=== PATIENT | female | born 1955 | race Caucasian/White ===

== ENCOUNTER 2016-08-05 12:39 | Emergency (ER) | payer BC ==
[2016-08-05 12:50] VITALS: BP 176/96
--- NOTE | 2016-08-05 13:38 | UC ---
Back Pain HPI - HPI Summary HPI Summary: 60 y/o female present to the urgent care c/o of chronic lower back pain , that has exacerbated since 07/25/2016., Pt reports she went to her daughter's wedding and she had to lift heavy luggage and then fell on her back. Since then, she has noticed numbness and tingling in the 1st and 2nd toes of both feet is increasing. Pt has a Hx of herniated disc Dx last year. She has finish PT and felt better, however she feels that her recent fall has exacerbated her lower back pain in the RT side. Pt denies fever, SOB, chest pain, saddle anesthesia, N/V/D, urinary symptoms. - History of Current Complaint Chief Complaint: UCLowerExtremity Stated Complaint: FOOT COMPLAINT Time Seen by Provider: 08/05/16 12:52 Hx Obtained From: Patient Hx Last Menstrual Period: Pt is menopausal ?: No Onset/Duration: Gradual Onset, Lasting Weeks, Still Present Timing: Intermittent Severity Initially: Mild Severity Currently: Moderate Pain Intensity: 4 Pain Scale Used: 0-10 Numeric Back Pain: Radiates To - Lower back pain radiating to hips with numbness and tingling over #1 and 2 toes b/L Character: Dull Aggravating: Movement, Lifting, Bending Alleviating: Rest Associated Signs And Symptoms: Positive: Numbness, Tingling, Pain with Weight Bearing. Negative: Swelling, Redness, Fever, Abdominal Pain, Flank Pain, Bladder Incontinence, Bowel Incontinence - Risk Factors AAA Risk Factors: Negative TAD Risk Factors: Negative Cauda Equina Risk Factors: Negative Epidural Abscess Risk Factors: Negative - Allergies/Home Medications Allergies/Adverse Reactions: Allergies Allergy/AdvReac Type Severity Reaction Status Date / Time Amoxicillin Allergy Severe Rash Verified 08/05/16 12:42 Ampicillin Allergy Severe Rash Verified 08/05/16 12:42 Aspirin Allergy Severe ASTHMA Verified 08/05/16 12:42 NSAIDs Allergy Severe ASTHMA-RELATED Verified 08/05/16 12:42 PROBLEMS Latex Allergy Mild Rash Verified 08/05/16 12:42 Home Medications: Home Medications Montelukast Sodium TAB* [Singulair 10 MG TAB*] 10 mg PO DAILY 08/05/16 [History Confirmed 08/05/16] PMH/Surg Hx/FS Hx/Imm Hx Previously Healthy: Yes Cardiovascular History: Hypertension Respiratory History: Asthma Other History Of: Negative For: Anticoagulant Therapy - Surgical History Surgical History: Yes Surgery Procedure, Year, and Place: TONSILS, D &C, TUBAL, HYSTERECTOMY, BLADDER LIFT 02, SINUSES, RHINOPLASTY, wisdom teeth -SILICONE CHIN IMPLANT - Family History Known Family History: Positive: Cardiac Disease, Hypertension, Renal Disease - Social History Occupation: Employed Full-time Lives: With Family Alcohol Use: Occasionally Substance Use Type: None Smoking Status (MU): Never Smoked Tobacco Type: Cigarettes Amount Used/How Often: ~ 1/2 ppd Have You Smoked in the Last Year: Yes Household Exposure Type: Cigarettes - Immunization History Most Recent Influenza Vaccination: 2016 Most Recent Tetanus Shot: 2010 Review of Systems Constitutional: Negative Skin: Negative Eyes: Negative ENT: Negative Respiratory: Negative Cardiovascular: Negative Gastrointestinal: Negative Genitourinary: Negative Musculoskeletal: Decreased ROM - of lower back due to pain Neurological: Negative, Numbness - numbness and tingling over the #1 and # 2 toes B/L Psychological: Negative All Other Systems Reviewed And Are Negative: Yes Physical Exam Triage Information Reviewed: Yes Appearance: Well-Appearing, No Pain Distress, Well-Nourished, Thin Vital Signs: Initial Vital Signs Temp 99.6 F 08/05/16 12:45 Pulse 105 08/05/16 12:45 Resp 18 08/05/16 12:45 BP 176/96 08/05/16 12:45 Pulse Ox 97 08/05/16 12:45 Vital Signs Reviewed: Yes Eye Exam: Normal Eyes: Positive: Conjunctiva Clear - PERRLA, EOMI, fundus grossly normal ENT Exam: Normal ENT: Positive: Normal ENT inspection, Hearing grossly normal, Pharynx normal, TMs normal. Negative: Nasal congestion, Nasal drainage, Tonsillar swelling, Tonsillar exudate Neck exam: Normal Neck: Positive: Supple, Nontender, No Lymphadenopathy Respiratory Exam: Normal Respiratory: Positive: Chest non-tender, Lungs clear, Normal breath sounds Cardiovascular Exam: Normal Cardiovascular: Positive: RRR, No Murmur, Pulses Normal Abdominal Exam: Normal Abdomen Description: Positive: Nontender, No Organomegaly, Soft. Negative: CVA Tenderness (R), CVA Tenderness (L) Bowel Sounds: Positive: Present Musculoskeletal: Positive: Strength Intact, ROM Limited @ - Back: mild scoliosis noted, no kyphosis,positive tenderness present at the level of L5-S1 with mild paraspinal muscle spasm and tenderness, Leg raise test:positive due to pain. Decrease FROM of back due to pain. Paraspinal muscle tenderness on palpation at the level of L5-S1. No edema. Positive pulses posterior tibialis and dorsalis pedis, femoral. Positive capillary refill. Decrease sensation on medial side of Toe #1 and 2 on both feet. Neurological Exam: Normal Psychological Exam: Normal Skin Exam: Normal Back Pain Course/Dx - Course Course Of Treatment: Lower back pain with numbness and tingling over the #1 and #2 toes B/L: Hx obtained. PE abnormal findings:Musculoskeletal: Positive: Strength Intact, ROM Limited @ - Back: mild scoliosis noted, no kyphosis, positive tenderness present at the level of L5-S1 with mild paraspinal muscle spasm and tenderness, Leg raise test:positive due to pain. Decrease FROM of back due to pain. Paraspinal muscle tenderness on palpation at the level of L5- S1. No edema. Positive pulses posterior tibialis and dorsalis pedis, femoral. Positive capillary refill. Decrease sensation on medial side of Toe #1 and 2 on both feet. Pt referred for PT evaluation and treatment. Pt Rx Medrol dose [place], flexeril 10mg PO and advise to wear a back support, avoid weight bearing and strenuous exercises. Also Advised if symptoms worsen to return to the urgent care or f/u with her PCP. Pt BP today is elevated 176/94. Pt with HX of HTN on Triamterine/HCTZ 1 tab PO qd. Pt advised on uncontrolled HTN, and she stated it is always uncontrolled and she took medication today. PT strongly advised to decrease salt intake, monitor her BP at home an f/u with her PCP for further evaluation and treatment. Pt understood and agreed. - Differential Dx/Diagnosis Differential Diagnosis/HQI/PQRI: Cauda Equina Syndrome, Compressive Cord Syndrome, Herniated Disc, Osteoporosis, Strain, Sprain Provider Diagnoses: Lower back pain, Uncontrolled HTN Discharge - Discharge Plan Condition: Stable Disposition: HOME Prescriptions: Cyclobenzaprine TAB* [Flexeril 10 MG TAB*] 10 mg PO TID PRN #30 tab PRN Reason: muscle spasm Methylprednisolone [Medrol Dosepak 4 MG*] 4 mg PO .SEE CHAPARRO INSTRUCTION #1 tab Patient Education Materials: Lumbar Radiculopathy (ED), Lower Back Exercises ( ED) Referrals: Megha Merrill MD [Primary Care Provider] - 1 Week Additional Instructions: Please take medication as directed to alleviate symptoms. Please make an appt for PT evaluation and treatment. Please avoid weight lifting and use a back support. If symptoms do not improve with medication please return to the urgent care or f/u with PCP for further evaluation and treatment.
== END 2016-08-05 13:43 | disposition home or self-care (01) ==
LOC: UCEAST 12:39
DX: M54.5 Low back pain (principal); I10 Essential (primary) hypertension; J45.909 Unspecified asthma, uncomplicated; Z88.1 Allergy status to other antibiotic agents; Z88.6 Allergy status to analgesic agent; Z91.040 Latex allergy status; Z90.710 Acquired absence of both cervix and uterus; Z72.0 Tobacco use
CPT/HCPCS: 99212; G0463

== ENCOUNTER 2016-09-12 13:18 | Emergency (ER) | payer BC ==
[2016-09-12 13:23] VITALS: BP 138/98
[2016-09-12] MEDS ORDERED: Meclizine TAB* 12.5 MG PO ONE (13:23)
--- NOTE | 2016-09-12 13:23 | UC ---
Dizzy HPI HPI Summary: 60 YEAR OLD FEMALE WITH A PMHX BPV PRESENTS WITH COMPLAINS OF VERTIGO. - History Of Current Complaint Stated Complaint: DIZZY Time Seen by Provider: 09/12/16 13:23 Hx Last Menstrual Period: Pt is menopausal - Allergies/Home Medications Allergies/Adverse Reactions: Allergies Allergy/AdvReac Type Severity Reaction Status Date / Time Amoxicillin Allergy Severe Rash Verified 08/05/16 12:42 Ampicillin Allergy Severe Rash Verified 08/05/16 12:42 Aspirin Allergy Severe ASTHMA Verified 08/05/16 12:42 NSAIDs Allergy Severe ASTHMA-RELATED Verified 08/05/16 12:42 PROBLEMS Latex Allergy Mild Rash Verified 08/05/16 12:42 PMH/Surg Hx/FS Hx/Imm Hx Other History Of: Negative For: Anticoagulant Therapy - Surgical History Surgical History: Yes Surgery Procedure, Year, and Place: TONSILS, D &C, TUBAL, HYSTERECTOMY, BLADDER LIFT 02, SINUSES, RHINOPLASTY, wisdom teeth -SILICONE CHIN IMPLANT - Family History Known Family History: Positive: Cardiac Disease, Hypertension, Renal Disease - Social History Alcohol Use: Occasionally Substance Use Type: None Smoking Status (MU): Never Smoked Tobacco Type: Cigarettes Amount Used/How Often: ~ 1/2 ppd Have You Smoked in the Last Year: Yes Household Exposure Type: Cigarettes - Immunization History Most Recent Influenza Vaccination: 2016 Most Recent Tetanus Shot: 2010 Review of Systems Constitutional: Other - VERTIGO Skin: Negative Eyes: Negative ENT: Negative Respiratory: Negative Cardiovascular: Negative Gastrointestinal: Negative Genitourinary: Negative Motor: Negative Neurovascular: Negative Musculoskeletal: Negative Neurological: Negative Psychological: Negative All Other Systems Reviewed And Are Negative: Yes Physical Exam Triage Information Reviewed: Yes Eye Exam: Normal ENT Exam: Normal Dental Exam: Normal Neck exam: Normal Neck: Positive: 1 Respiratory Exam: Normal Cardiovascular Exam: Normal Abdominal Exam: Normal Musculoskeletal Exam: Normal Neurological: Positive: Fatigued, Other: - VERTIGO Psychological Exam: Normal Skin Exam: Normal Dizzy Course/Dx - Differential Dx/Diagnosis Provider Diagnoses: BPV Discharge - Discharge Plan Condition: Stable Disposition: HOME Prescriptions: Meclizine HCl [Meclizine 25] 25 mg PO Q8HR PRN #30 tab PRN Reason: Dizziness Scopolamine 1.5 mg* PATCH* [Transderm-Scop 1.5 mg Patch*] 1 patch TRANSDERM Q72H #1 box Patient Education Materials: Vertigo (ED) Forms: *Work Release Referrals: Megha Merrill MD [Primary Care Provider] - If Needed
== END 2016-09-12 13:50 | disposition home or self-care (01) ==
LOC: UCEAST 13:18
DX: H81.10 Benign paroxysmal vertigo, unspecified ear (principal); Z78.0 Asymptomatic menopausal state; Z88.6 Allergy status to analgesic agent; Z88.3 Allergy status to other anti-infective agents; Z91.040 Latex allergy status; F17.210 Nicotine dependence, cigarettes, uncomplicated
CPT/HCPCS: 99212; A9270-GY; G0463

== ENCOUNTER 2016-12-15 15:35 | Emergency (ER) | payer BC ==
[2016-12-15 15:49] VITALS: BP 150/85
--- NOTE | 2016-12-15 16:27 | UC ---
Throat Pain/Nasal Isaac HPI - HPI Summary HPI Summary: This is a 61 yo female with a h/o recurrent sinusitis and 2 prior polypectomies who presented with c/o nasal congestion and facial pain. Patient has been treated for sinusitis in June and September of this year. She states that 2 weeks after completing her September course of antibiotics her symptoms began to recur. She has been afebrile and denies associated cough. - History of Current Complaint Chief Complaint: UCRespiratory Stated Complaint: SINUS COMPLAINT Hx Last Menstrual Period: Pt is menopausal - Allergies/Home Medications Allergies/Adverse Reactions: Allergies Allergy/AdvReac Type Severity Reaction Status Date / Time Amoxicillin Allergy Severe Rash Verified 12/15/16 15:50 Ampicillin Allergy Severe Rash Verified 12/15/16 15:50 Aspirin Allergy Severe ASTHMA Verified 12/15/16 15:50 NSAIDs Allergy Severe ASTHMA-RELATED Verified 12/15/16 15:50 PROBLEMS Latex Allergy Mild Rash Verified 12/15/16 15:50 PMH/Surg Hx/FS Hx/Imm Hx Previously Healthy: No - recurrent sinusitis Other History Of: Negative For: Anticoagulant Therapy - Surgical History Surgical History: Yes Surgery Procedure, Year, and Place: TONSILS, D &C, TUBAL, HYSTERECTOMY, BLADDER LIFT 02, SINUSES, RHINOPLASTY, wisdom teeth -SILICONE CHIN IMPLANT - Family History Known Family History: Positive: Cardiac Disease, Hypertension, Renal Disease - Social History Alcohol Use: Occasionally Substance Use Type: None Smoking Status (MU): Heavy Every Day Tobacco Smoker Type: Cigarettes Amount Used/How Often: 1/2 ppd Length of Time of Smoking/Using Tobacco: since 2006 Have You Smoked in the Last Year: Yes Household Exposure Type: Cigarettes - Immunization History Most Recent Influenza Vaccination: 2016 Most Recent Tetanus Shot: 2011 Review of Systems Constitutional: Negative Skin: Negative Eyes: Negative ENT: Nasal Discharge, Sinus Congestion, Sinus Pain/Tenderness Respiratory: Negative Cardiovascular: Negative Gastrointestinal: Negative Genitourinary: Negative Motor: Negative Neurovascular: Negative Musculoskeletal: Negative Neurological: Negative Psychological: Negative Is Patient Immunocompromised?: No All Other Systems Reviewed And Are Negative: Yes Physical Exam Triage Information Reviewed: Yes Appearance: Well-Appearing Vital Signs: Initial Vital Signs Temp 98.8 F 12/15/16 15:44 Pulse 82 12/15/16 15:44 Resp 16 12/15/16 15:44 BP 150/85 12/15/16 15:44 Pulse Ox 98 12/15/16 15:44 Vital Signs Reviewed: Yes ENT: Positive: Pharynx normal, Nasal congestion, Nasal drainage - nasal turbinates are boggy and inflammed, TMs normal. Negative: Tonsillar swelling Neck: Positive: Supple, Nontender, No Lymphadenopathy Respiratory: Positive: Lungs clear, Normal breath sounds Cardiovascular: Positive: RRR, No Murmur Abdominal Exam: Normal Abdomen Description: Positive: Nontender, Soft Musculoskeletal Exam: Normal Neurological Exam: Normal Psychological Exam: Normal Skin Exam: Normal Throat Pain/Nasal Course/Dx - Course Course Of Treatment: This is a 61 yo female with recurrent sinusitis who presents with sinus complaints x 6 weeks. She has associated L facial pain. Treat with Levaquin and oral corticosteroids. Recommend f/u with ENT. - Differential Dx/Diagnosis Differential Diagnosis/HQI/PQRI: Sinusitis, Tonsillitis, URI Provider Diagnoses: 1. Sinusitis Discharge - Discharge Plan Condition: Stable Disposition: HOME Prescriptions: Levofloxacin TAB* [Levaquin TAB*] 750 mg PO DAILY #14 tab predniSONE TAB* [Deltasone TAB*] 50 mg PO SEE INSTRUCTIONS #30 tab Patient Education Materials: Sinusitis (ED) Referrals: Megha Merrill MD [Primary Care Provider] - If Needed Additional Instructions: Instructions: 1. Take antibiotic and steroid as directed 2. Start nasal steroid when finished with oral steroid taper 3. Follow up with ENT due to recurrent infection
== END 2016-12-15 16:31 | disposition home or self-care (01) ==
LOC: UCEAST 15:35
DX: J32.9 Chronic sinusitis, unspecified (principal); Z88.6 Allergy status to analgesic agent; Z88.1 Allergy status to other antibiotic agents; F17.210 Nicotine dependence, cigarettes, uncomplicated
CPT/HCPCS: 99212; G0463

== ENCOUNTER 2017-01-17 14:31 | Emergency (ER) | payer BC ==
[2017-01-17 15:20] VITALS: BP 155/80
--- NOTE | 2017-01-17 15:35 | UC ---
Respiratory Complaint HPI - HPI Summary HPI Summary: 61 y/o female PMHX of Asthma, HTN , presents to the urgent care c/o SOB, chest congestion with productive barking cough since 01/15/2017. Pt also reports fever of 10F last night. She also states associated wheezing and nasal congestion with yellowish nasal discharge. She took Tylenol to alleviate symptoms and has been using the albuterol inhaler. Pt recently stopped smoking 3 weeks ago and has the patch. She also states hx of chronic sinusitis. She was Tx with levofloxacin PO here at the clinic for sinusitis on 11/2016. Pt denies chest pain, abdominal pain, N/V/D. - History of Current Complaint Hx Obtained From: Patient Hx Last Menstrual Period: Pt is menopausal ?: No Onset/Duration: Gradual Onset, Lasting Days - 3 days, Still Present Timing: Constant Severity Initially: Mild Severity Currently: Moderate Pain Intensity: 5 - sinus pain and SYKES Pain Scale Used: 0-10 Numeric Character: Cough: Productive, Sputum Description: - yellowish Aggravating Factors: Deep Breaths, Recumbent Position Alleviating Factors: Bronchodilator Associated Signs And Symptoms: Positive: Dyspnea, Fever, Wheezing, Nasal Congestion. Negative: Pleuritic Chest Pain, Calf Pain, Calf Swelling - Risk Factors Pulmonary Embolism Risk Factors: Negative Cardiac Risk Factors: Hypertension Pseudomonas Risk Factors: Negative Tuberculosis Risk Factors: Negative <Ruthann Suresh - Last Filed: 01/18/17 00:28> <Hannah Montes De Oca - Last Filed: 01/18/17 08:14> - History of Current Complaint Chief Complaint: UCRespiratory Stated Complaint: COUGH, CONGESTED Time Seen by Provider: 01/17/17 15:29 - Allergies/Home Medications Allergies/Adverse Reactions: Allergies Allergy/AdvReac Type Severity Reaction Status Date / Time Amoxicillin Allergy Severe Rash Verified 12/15/16 15:50 Ampicillin Allergy Severe Rash Verified 12/15/16 15:50 Aspirin Allergy Severe ASTHMA Verified 12/15/16 15:50 NSAIDs Allergy Severe ASTHMA-RELATED Verified 12/15/16 15:50 PROBLEMS Latex Allergy Mild Rash Verified 12/15/16 15:50 PMH/Surg Hx/FS Hx/Imm Hx Previously Healthy: Yes Endocrine History: Hypothyroidism Cardiovascular History: Hypertension Respiratory History: Asthma Other Neurological History: DDD Psychological History: Depression Other History Of: Negative For: Anticoagulant Therapy - Surgical History Surgical History: Yes Surgery Procedure, Year, and Place: TONSILS, D &C, TUBAL, HYSTERECTOMY, BLADDER LIFT 02, SINUSES, RHINOPLASTY, wisdom teeth -SILICONE CHIN IMPLANT - Family History Known Family History: Positive: Cardiac Disease, Hypertension, Renal Disease - Social History Occupation: Employed Full-time Lives: With Family Alcohol Use: Occasionally Substance Use Type: None Smoking Status (MU): Heavy Every Day Tobacco Smoker Type: Cigarettes Amount Used/How Often: 1/2 ppd Length of Time of Smoking/Using Tobacco: since 2006 Have You Smoked in the Last Year: Yes Household Exposure Type: Cigarettes - Immunization History Most Recent Influenza Vaccination: 2016 Most Recent Tetanus Shot: 2010 <Ruthann Suresh - Last Filed: 01/18/17 00:28> Review of Systems Constitutional: Fever Skin: Negative Eyes: Negative ENT: Nasal Discharge, Sinus Congestion Respiratory: Shortness Of Breath, Cough - productive with yellowish phlegm, Other - wheezing Cardiovascular: Negative Gastrointestinal: Negative Genitourinary: Negative Motor: Negative Neurovascular: Negative Musculoskeletal: Negative Neurological: Headache Psychological: Negative Is Patient Immunocompromised?: No All Other Systems Reviewed And Are Negative: Yes <Ruthann Suresh - Last Filed: 01/18/17 00:28> Physical Exam Triage Information Reviewed: Yes Vital Signs: Initial Vital Signs Temp 99.6 F 01/17/17 15:16 Pulse 89 01/17/17 15:16 Resp 22 01/17/17 15:16 BP 155/80 01/17/17 15:16 Pulse Ox 97 01/17/17 15:16 - Additional Comments Vital Signs Reviewed: Yes General: well developed, well nourished female sitting in the examining table w/ o any apparent distress Eyes: Positive: Conjunctiva Clear - PERRLA, EOMI, fundi grossly normal ENT: Positive: Normal ENT inspection, Hearing grossly normal, Pharynx normal, Nasal congestion - edematous and erythematous nasal mucosa, Nasal drainage - yellowish drainage, maxillary and frontal sinus tenderness on percussion and palpation.TMs normal. Negative: Tonsillar swelling, Tonsillar exudate Neck: Positive: Supple, Nontender, No Lymphadenopathy Respiratory: no orthopnea or dyspnea. Able to speak in full sentences, no retractions or accessory muscle use, no tripod position, stridor, or head bobbing.,, scattered wheezing and rhonchi in both lungs, no crackles or rales. Cardiovascular: Positive: RRR, No Murmur, Pulses Normal, Brisk Capillary Refill Abdomen Description: Positive: Nontender, No Organomegaly, Soft. Negative: CVA Tenderness (R), CVA Tenderness (L) Bowel Sounds: Positive: Present Musculoskeletal Exam: Normal Musculoskeletal: Positive: Strength Intact, ROM Intact, No Edema Neurological Exam: Normal Psychological Exam: Normal Skin Exam: Normal <Ruthann Suresh - Last Filed: 01/18/17 00:28> Vital Signs: Initial Vital Signs Temp 99.6 F 01/17/17 15:16 Pulse 89 01/17/17 15:16 Resp 22 01/17/17 15:16 BP 155/80 01/17/17 15:16 Pulse Ox 97 01/17/17 15:16 <Hannah Montes De Oca - Last Filed: 01/18/17 08:14> UC Diagnostic Evaluation - Laboratory O2 Sat by Pulse Oximetry: 97 <Ruthann Suresh - Last Filed: 01/18/17 00:28> Respiratory Course/Dx - Course Course Of Treatment: 61 y/o female PMHX of Asthma, HTN , presents to the urgent care c/o SOB, chest congestion with productive barking cough since 01/15/2017. Pt also reports fever of 10F last night. She also states associated wheezing and nasal congestion with yellowish nasal discharge. She took Tylenol to alleviate symptoms and has been using the albuterol inhaler. Pt recently stopped smoking 3 weeks ago and has the patch. She also states hx of chronic sinusitis. She was Tx with levofloxacin PO here at the clinic for sinusitis on 11/2016. Pt denies chest pain, abdominal pain, N/V/D. Hx obtained. Pt with Acute bronchitis on examination.Chest X-ray ordered to r/o pneumonia, Impression : No acute cardiopulmonary disease noted. Pt given at the clinic prednisone PO and duoneb treatment to alleviate SOB and wheezing. Pt tolerated well treatment and lungs improved and Pt felt better. Pt previous smoker. Pt RxDoxycycline PO, Duo neb Tx and Albuterol inhaler to alleviate symptoms. Pt's BP elevated today advised to decrease salt in diet and monitor BP and F/U with PCP for further management. Pt also advised to increase fluid intake, eat well and rest. if not improvement or worsening of symptoms to return to the urgent care or f/u with PCP for further management. pt understood and agreed with plan of care. - Differential Dx/Diagnosis Differential Diagnosis/HQI/PQRI: Asthma, Bronchitis, Exacerbation Of COPD, Influenza, Laryngitis, Lower Resp Infection, Sinusitis Provider Diagnoses: 1- Acute bronchitis. 2-Asthma exacerbation. 3- Uncontrolled HTN <Ruthann Suresh - Last Filed: 01/18/17 00:28> Discharge <Ruthann Suresh - Last Filed: 01/18/17 00:28> <Hannah Montes De Oca - Last Filed: 01/18/17 08:14> - Discharge Plan Condition: Stable Disposition: HOME Prescriptions: Albuterol HFA INHALER* [Ventolin HFA Inhaler*] 2 puff INH Q4H PRN #1 mdi PRN Reason: Wheezing Albuterol/Ipratropium NEB.LUNA* [Duoneb (Albuterol 2.5 MG/Ipratropium 0.5 MG)] 1 neb INH Q6H PRN #1 neb.luna PRN Reason: Wheezing DOXYcycline CAP(*) [DOXYcycline 100MG CAP(*)] 100 mg PO BID #20 cap predniSONE TAB* [Deltasone TAB*] 10 mg PO DAILY #30 tab Patient Education Materials: Asthma (ED), Acute Bronchitis (ED), Low Sodium Diet (ED) Forms: *Work Release Referrals: Megha Merrill MD [Primary Care Provider] - 3 Days Additional Instructions: 1-Please take full course of antibiotic to avoid resistance. 2-Take do the duo neb treatment as directed to alleviate SOB and cough. Increase fluid intake, rest and eat well. 3- If symptoms do not improve or worsen or your develop SOB with fever and severe wheezing please go immediately to the ER further evaluation and treatment. 4- F/u with your PCP in 2-3 days for further management on your Asthma 5-Your BP is elevated please decrease salt in your diet and monitor BP if it continues to be elevated please f/u wth your PCP Attestation Statement User Type: Provider - I was available for consult. This patient was seen by the LEONOR. The patient was not presented to, seen by, or examined by me. -Evelyn <Hannah Montes De Oca - Last Filed: 01/18/17 08:14>
[2017-01-17] MEDS ORDERED: predniSONE TAB* 20 MG PO ONE (15:50)
[2017-01-17] MEDS ORDERED: Albuterol/Ipratropium NEB.SOL* Albuterol 2.5 MG/Ipratropium 0.5 MG 3 ML INH ONE (15:50)
--- NOTE | 2017-01-17 15:52 | RAD ---
Indication: Cough. 2 views of the chest including dual energy PA views demonstrate no mediastinal shift. Heart is of normal size and configuration. Lungs are clear. When compared to previous exam of April 08, 2014 no significant change is noted. IMPRESSION: No active cardiopulmonary disease is noted.
== END 2017-01-17 16:45 | disposition home or self-care (01) ==
LOC: UCEAST 14:31
DX: J20.9 Acute bronchitis, unspecified (principal); J45.901 Unspecified asthma with (acute) exacerbation; I10 Essential (primary) hypertension; Z72.0 Tobacco use
CPT/HCPCS: 71020; 99212; A9270-GY; G0463; J7512

== ENCOUNTER 2017-03-10 17:16 | Emergency (ER) | payer BC ==
[2017-03-10 18:15] VITALS: BP 187/90
--- NOTE | 2017-03-10 19:03 | UC ---
Respiratory Complaint HPI - HPI Summary HPI Summary: 61 yo female with cough and wheezing x 7 weeks out of her rescue inhaler out of her flovent no fever/chills cough not productive for past week has been having left lateral chest wall pain with cough - History of Current Complaint Chief Complaint: UCRespiratory Stated Complaint: URI Time Seen by Provider: 03/10/17 18:48 Hx Obtained From: Patient Hx Last Menstrual Period: Pt is menopausal Onset/Duration: Sudden Onset, Gradual Onset Timing: Constant Severity Initially: Moderate Severity Currently: Moderate Pain Intensity: 3 Pain Scale Used: 0-10 Numeric Character: Cough: Nonproductive Aggravating Factors: Exertion, Deep Breaths Alleviating Factors: Bronchodilator Associated Signs And Symptoms: Positive: Wheezing - Allergies/Home Medications Allergies/Adverse Reactions: Allergies Allergy/AdvReac Type Severity Reaction Status Date / Time Amoxicillin Allergy Severe Rash Verified 03/10/17 18:16 Ampicillin Allergy Severe Rash Verified 03/10/17 18:16 Aspirin Allergy Severe ASTHMA Verified 03/10/17 18:16 NSAIDs Allergy Severe ASTHMA-RELATED Verified 03/10/17 18:16 PROBLEMS Latex Allergy Mild Rash Verified 03/10/17 18:16 PMH/Surg Hx/FS Hx/Imm Hx Previously Healthy: Yes Cardiovascular History: Hypertension Respiratory History: Asthma, Bronchitis Other History Of: Negative For: Anticoagulant Therapy - Surgical History Surgical History: Yes Surgery Procedure, Year, and Place: TONSILS, D &C, TUBAL, HYSTERECTOMY, BLADDER LIFT 02, SINUSES, RHINOPLASTY, wisdom teeth -SILICONE CHIN IMPLANT - Family History Known Family History: Positive: Cardiac Disease, Hypertension, Renal Disease - Social History Alcohol Use: Occasionally Substance Use Type: None Smoking Status (MU): Heavy Every Day Tobacco Smoker Type: Cigarettes Amount Used/How Often: 1/2 ppd Length of Time of Smoking/Using Tobacco: since 2006 Have You Smoked in the Last Year: Yes Household Exposure Type: Cigarettes - Immunization History Most Recent Influenza Vaccination: 2016 Most Recent Tetanus Shot: 2010 Review of Systems Constitutional: Negative Skin: Negative Eyes: Negative ENT: Negative Respiratory: Cough Cardiovascular: Chest Pain Gastrointestinal: Negative Genitourinary: Negative Motor: Negative Neurovascular: Negative Musculoskeletal: Negative Neurological: Negative Psychological: Negative Is Patient Immunocompromised?: No All Other Systems Reviewed And Are Negative: Yes Physical Exam Triage Information Reviewed: Yes Appearance: Well-Appearing, No Pain Distress, Well-Nourished Vital Signs: Initial Vital Signs Temp 98.6 F 03/10/17 18:12 Pulse 80 03/10/17 18:12 Resp 18 03/10/17 18:12 BP 187/90 03/10/17 18:12 Pulse Ox 99 03/10/17 18:12 Vital Signs Reviewed: Yes Eyes: Positive: Conjunctiva Clear ENT: Positive: Hearing grossly normal. Negative: Nasal congestion, Nasal drainage, Trismus, Muffled voice, Hoarse voice Neck: Positive: Nontender, No Lymphadenopathy Respiratory: Positive: No respiratory distress, No accessory muscle use, Wheezing - with forced expiration Cardiovascular: Positive: RRR, No Murmur Musculoskeletal: Positive: ROM Intact, No Edema Neurological: Positive: Alert Psychological Exam: Normal Skin Exam: Normal UC Diagnostic Evaluation - Laboratory O2 Sat by Pulse Oximetry: 99 - normal/not hypoxic - EKG Cardiac Rate: NL Cardiac Rhythm: Sinus: Normal Ectopy: None ST Segment: Normal Respiratory Course/Dx - Differential Dx/Diagnosis Provider Diagnoses: asthma- poor control. med refill. tobacco use. hypertension. chest wall pain Discharge - Discharge Plan Condition: Stable Disposition: HOME Prescriptions: Albuterol HFA INHALER* [Ventolin HFA Inhaler*] 2 puff INH QID #1 mdi Fluticasone HFA 220 mcg(NF) [Flovent HFA 220 Mcg(NF)] 1 puff INH BID #1 mdi Prednisone [Deltasone] 40 mg PO DAILY #10 tab Patient Education Materials: Bronchospasm (ED) Referrals: Sunil Pollack MD [Medical Doctor] - As Soon As Possible Megha Merrill MD [Primary Care Provider] - 2 Weeks (re BP) Additional Instructions: stop smoking recheck for new or worsening symptoms
== END 2017-03-10 19:10 | disposition home or self-care (01) ==
LOC: UCEAST 17:16
DX: J45.909 Unspecified asthma, uncomplicated (principal); I10 Essential (primary) hypertension; R07.89 Other chest pain; Z72.0 Tobacco use; Z76.0 Encounter for issue of repeat prescription; Z88.0 Allergy status to penicillin; Z88.6 Allergy status to analgesic agent; Z91.040 Latex allergy status
CPT/HCPCS: 93005; 99212; G0463

== ENCOUNTER 2017-04-22 16:00 | Emergency (ER) | payer BC ==
[2017-04-22 16:50] VITALS: BP 176/117
--- NOTE | 2017-04-22 17:25 | UC ---
Respiratory Complaint HPI - HPI Summary HPI Summary: Patient c/o cough, facial pain specially on the left maxillary area, night sweats and low grade fever for several weeks. Has history of paranasal polyps s /p surgery 3 times. PMH of asthma, smokes half PPD. She has yellow green d/c and left sided nasal obstruction. - History of Current Complaint Chief Complaint: UCGeneralIllness Stated Complaint: SINUS COMPLAINT Time Seen by Provider: 04/22/17 16:03 Hx Last Menstrual Period: Pt is menopausal Pain Intensity: 4 Character: Cough: Productive, Sputum Description: - yellow greenish post nasal drip Associated Signs And Symptoms: Positive: Chills, Nasal Congestion, Sinus Discomfort - Risk Factors Pulmonary Embolism Risk Factors: Negative Cardiac Risk Factors: Negative Pseudomonas Risk Factors: Negative Tuberculosis Risk Factors: Negative - Allergies/Home Medications Allergies/Adverse Reactions: Allergies Allergy/AdvReac Type Severity Reaction Status Date / Time amoxicillin Allergy Rash Verified 04/22/17 16:54 ampicillin Allergy Rash Verified 04/22/17 16:54 aspirin Allergy See Comment Verified 04/22/17 16:55 latex Allergy Rash Verified 04/22/17 16:54 NSAIDS (Non-Steroidal Allergy See Comment Verified 04/22/17 16:55 Anti-Inflamma Home Medications: Home Medications Levothyroxine TAB* [Synthroid 25 MCG TAB*] 25 mcg PO DAILY 04/22/17 [History Confirmed 04/22/17] PMH/Surg Hx/FS Hx/Imm Hx Previously Healthy: Yes Endocrine History: Hypothyroidism Respiratory History: Asthma Psychological History: Depression Other History Of: Negative For: Anticoagulant Therapy - Surgical History Surgical History: Yes Surgery Procedure, Year, and Place: TONSILS, D &C, TUBAL, HYSTERECTOMY, BLADDER LIFT 02, SINUSES, RHINOPLASTY, wisdom teeth -SILICONE CHIN IMPLANT - Family History Known Family History: Positive: Cardiac Disease, Hypertension, Renal Disease - Social History Alcohol Use: Occasionally Substance Use Type: None Smoking Status (MU): Heavy Every Day Tobacco Smoker Type: Cigarettes Amount Used/How Often: 1/2 ppd Length of Time of Smoking/Using Tobacco: since 2006 Have You Smoked in the Last Year: Yes Household Exposure Type: Cigarettes - Immunization History Most Recent Influenza Vaccination: 2016 Most Recent Tetanus Shot: 2010 Review of Systems Constitutional: Chills Skin: Negative ENT: Nasal Discharge, Sinus Congestion, Sinus Pain/Tenderness Respiratory: Cough Cardiovascular: Negative Gastrointestinal: Negative Genitourinary: Negative Motor: Negative Neurovascular: Negative Musculoskeletal: Negative All Other Systems Reviewed And Are Negative: Yes Physical Exam Triage Information Reviewed: Yes Appearance: Well-Appearing Vital Signs: Initial Vital Signs Temp 99.1 F 04/22/17 16:44 Pulse 86 04/22/17 16:44 Resp 18 04/22/17 16:44 BP 176/117 04/22/17 16:44 Pulse Ox 98 04/22/17 16:44 Vital Signs Reviewed: Yes Eyes: Positive: Conjunctiva Clear ENT: Positive: Hearing grossly normal, Pharynx normal, Nasal congestion, Nasal drainage, TMs normal, Hoarse voice, Sinus tenderness, Uvula midline Neck: Positive: Supple, Nontender, No Lymphadenopathy Respiratory: Positive: Chest non-tender, Lungs clear, Normal breath sounds, No respiratory distress, No accessory muscle use Cardiovascular: Positive: RRR, No Murmur, Pulses Normal, Brisk Capillary Refill Abdomen Description: Positive: Nontender UC Diagnostic Evaluation - Laboratory O2 Sat by Pulse Oximetry: 98 Respiratory Course/Dx - Course Course Of Treatment: Start Levaquin 500mg po daily for 7 days and pulmicort irrigation, referral ENT for evaluation r/o recurrence of paranasal polyps - Differential Dx/Diagnosis Provider Diagnoses: Acute maxillary sinusitis Discharge - Discharge Plan Condition: Stable Disposition: HOME Patient Education Materials: Sinusitis (ED) Referrals: Megha Merrill MD [Primary Care Provider] - Nba Maria MD [Medical Doctor] -
== END 2017-04-22 17:32 | disposition home or self-care (01) ==
LOC: UCEAST 16:00
DX: J01.00 Acute maxillary sinusitis, unspecified (principal); E03.9 Hypothyroidism, unspecified; J45.909 Unspecified asthma, uncomplicated; F32.9 Major depressive disorder, single episode, unspecified; F17.210 Nicotine dependence, cigarettes, uncomplicated
CPT/HCPCS: 99212; G0463

== ENCOUNTER → 2017-05-20 07:41 | Day surgery (SDC) | payer BC ==
[~2017-05-20 07:41] MED LIST: Buffered Lidocaine 0.9% SYRIN* 5 ML/SYR SYRINGE INTRADERM ONE; Dexamethasone IV* 4 MG/ML 1 ML (4 MG) IV SLOW PU ONE; Dexamethasone IV* 4 MG/ML 1 ML (4 MG) ONE; DiMENhydriNATE IV* 50 MG/ML VIAL IV PUSH PRN; Famotidine IV* 10 MG/ML 2 ML (20 mg) IV ONE; Famotidine IV* 10 MG/ML 2 ML (20 mg) ONE; Ketorolac INJ* 30 MG/ML 1 ML VIAL ONE; Lidocaine 1% MPF wEPI 200,000* 30 ML SDV ONE; Lidocaine 4% TOPICAL* 50 ML TOP.SOLN ONE; Midazolam* 1 MG/ML 2 ML VIAL (2 MG) ONE; Naloxone* 0.4 MG/ML 1 ML VIAL IV PRN; Ondansetron INJ* 2 MG/ML VIAL ONE; Oxymetazoline 0.05% NASAL SPR* 15 ML BTL ONE; Propofol* 10 MG/ML 20 ML BTL IV PUSH ONE; Scopolamine 1.5 mg* PATCH ONE; Scopolamine 1.5 mg* PATCH TRANSDERM ONE; Triamcinolone Acetonide* 40 MG/ML 1 ML VIAL ONE; fentaNYL* 50 MCG/ML 2 ML VIAL (100 MCG VIAL) ONE
[2017-05-20] MEDS: fentaNYL* 50 MCG/ML 2 ML VIAL (100 MCG VIAL) IV PRN ×4 (12:38→12:50)
[2017-05-20 13:16] VITALS: BP 148/73
--- NOTE | 2017-05-21 05:08 | OP ---
DATE OF OPERATION: 05/20/17 - SDS DATE OF : 55. SURGEON: Kiko Saravia MD. ANESTHESIA: General laryngeal mask airway anesthesia. PRE-OP DIAGNOSIS: Chronic maxillary ethmoidal, sphenoidal sinusitis with nasal polyposis. POST-OP DIAGNOSIS: Chronic maxillary ethmoidal, sphenoidal sinusitis with nasal polyposis. OPERATIVE PROCEDURE: Bilateral endoscopic sinus surgery using image guidance with maxillary antrostomies with debridement, anterior and posterior ethmoidectomy and sphenoidotomy under general laryngeal mask airway anesthesia. COMPLICATIONS: None. DISPOSITION: Good. SPECIMENS: Left and right polyps and sinus contents. DESCRIPTION OF PROCEDURE: The patient was taken to the operating room and placed in the supine position on the operating table. General anesthesia was induced and she was maintained with laryngeal mask airway anesthesia. Nose was packed with cottonoids impregnated with oxymetazoline and 4% lidocaine. She was registered to the image-guided system and endoscopic sinuses were bilaterally. The polyps, lateral wall, uncinate process were injected with lidocaine with epinephrine. I systematically debrided the polyps from the ostiomeatal unit, maxillary ostium, maxillary sinuses, anterior and posterior ethmoids, and the sphenoid sinuses where they were protruding from. This was done with a Blakeonley's debrider and again using image guidance to verify the position within the sinuses. Polyps were taken from the frontal ducts, but I did not enter the frontal sinuses, their ostium were open. Once this was achieved, Stammberger Sinu-Foam mixed with water and 1 mL of Kenalog 40 was mixed and placed in her ostiomeatal units bilaterally. Patient tolerated the procedure well, no complications, transferred to the recovery room in stable condition. [id number]/[facility] #: [id number] [facility]
== END | disposition home or self-care (01) ==
LOC: OR 07:41
PROVIDERS: ATTEND Otolaryngology
DX: J32.8 Other chronic sinusitis (principal); J33.8 Other polyp of sinus; I10 Essential (primary) hypertension; F17.210 Nicotine dependence, cigarettes, uncomplicated
CPT/HCPCS: 88304; A9270-GY; J1100; J1885; J2001; J2250; J2405; J2704; J3010; J3301

== ENCOUNTER 2017-09-08 10:19 | Emergency (ER) | payer BC ==
[2017-09-08 11:03] VITALS: BP 155/90
[2017-09-08] MEDS ORDERED: Cephalexin CAP* 500 MG PO ONE (11:12)
[2017-09-08] MEDS ORDERED: Phenazopyridine TAB* 100 MG PO ONE (11:12)
--- NOTE | 2017-09-08 11:35 | UC ---
Complaint Female HPI - HPI Summary HPI Summary: Patient is a 61-year-old female presenting to the with complaint of urgency, frequency, burning with urination and suprapubic tenderness since 3 AM. History of UTIs, last UTI 2 years ago. States she had Keflex and. With relief 2 years ago. She has not tried any Pyridium health the past few days. She denies any back pain. Denies any fevers, sweats, chills. She states she is feeling otherwise well. - History Of Current Complaint Chief Complaint: UCGU Stated Complaint: URINARY COMPLAINT Time Seen by Provider: 09/08/17 11:05 Hx Obtained From: Patient Hx Last Menstrual Period: Pt is menopausal ?: No Onset/Duration: Sudden Onset Timing: Constant Severity Initially: Moderate Severity Currently: Moderate Pain Intensity: 1 Pain Scale Used: 0-10 Numeric - Risk Factors Ectopic Risk Factor: Negative Ovarian Torsion Risk Factor: Negative - Allergies/Home Medications Allergies/Adverse Reactions: Allergies Allergy/AdvReac Type Severity Reaction Status Date / Time amoxicillin Allergy Rash Verified 09/08/17 11:04 ampicillin Allergy Rash Verified 09/08/17 11:04 aspirin Allergy See Comment Verified 09/08/17 11:04 latex Allergy Rash Verified 09/08/17 11:04 NSAIDS (Non-Steroidal Allergy See Comment Verified 09/08/17 11:04 Anti-Inflamma PMH/Surg Hx/FS Hx/Imm Hx Previously Healthy: Yes Other History Of: Negative For: Anticoagulant Therapy - Surgical History Surgical History: Yes Surgery Procedure, Year, and Place: tonsillectomy age 19 [place]. D&[place] x3 in [place]. Tubal ligation 1993 [place]. hysterectomy with bladder lift 2001 [place]. sinus surgeries (1 with rhinoplasty and silicone chin implant) [place]3 [place]2 [place], 1 [facility] [place] wisdom teeth extraction in dental office. left upper thigh squamous cell removed - [place] [facility] [place] - Family History Known Family History: Positive: Cardiac Disease, Hypertension, Renal Disease - Social History Occupation: Employed Full-time Lives: With Family Alcohol Use: Rare Substance Use Type: None Smoking Status (MU): Light Every Day Tobacco Smoker Type: Cigarettes Amount Used/How Often: down to 5 cigs day from 1/2 ppd for 16 yrs Length of Time of Smoking/Using Tobacco: since 2006 Have You Smoked in the Last Year: Yes Household Exposure Type: Cigarettes - Immunization History Most Recent Influenza Vaccination: 2016 Most Recent Tetanus Shot: 2011 Review of Systems Constitutional: Fever Skin: Negative Respiratory: Negative Cardiovascular: Negative Genitourinary: Dysuria, Frequency, Urgency Neurovascular: Negative Musculoskeletal: Negative Neurological: Negative Is Patient Immunocompromised?: No All Other Systems Reviewed And Are Negative: Yes Physical Exam Triage Information Reviewed: Yes Appearance: Well-Appearing, Well-Nourished Vital Signs: Initial Vital Signs Temp 98.6 F 09/08/17 11:00 Pulse 71 09/08/17 11:00 Resp 18 09/08/17 11:00 BP 155/90 09/08/17 11:00 Pulse Ox 100 09/08/17 11:00 Vital Signs Reviewed: Yes Eye Exam: Normal Eyes: Positive: Conjunctiva Clear Neck: Positive: Supple Respiratory Exam: Normal Respiratory: Positive: Chest non-tender Cardiovascular Exam: Normal Musculoskeletal Exam: Normal Musculoskeletal: Positive: Strength Intact Neurological Exam: Normal Neurological: Positive: Alert Psychological: Positive: Normal Response To Family Skin Exam: Normal Complaint Female Dx - Course Course Of Treatment: During the [facility], the patient's evaluated for UTI symptoms. Endorses frequency, urgency, burning and suprapubic tenderness. UA obtained which shows N leukocytes. She is given Keflex 500 mg 4 times daily 5 days. Also given Pyridium. She is given Keflex prior to her discharge from the . She is okay with this plan. - Differential Dx/Diagnosis Differential Diagnosis/HQI/PQRI: Urinary Tract Infection Provider Diagnoses: UTI Discharge - Sign-Out/Discharge Documenting (check all that apply): Patient Departure - Discharge Plan Condition: Stable Disposition: HOME Prescriptions: Cephalexin CAP* [Keflex CAP*] 500 mg PO QID #20 cap MDD 4 Phenazopyridine TAB* [Pyridium 100 mg TAB*] 100 mg PO TID #12 tab Patient Education Materials: Urinary Tract Infection in Women (ED) Referrals: Megha Merrill MD [Primary Care Provider] - Additional Instructions: Drink plenty of water Keflex four times daily x 5 days Pyridium up to three times daily as needed - Billing Disposition and Condition Condition: STABLE Disposition: Home Attestation Statement User Type: Provider - I was available for consult. This patient was seen by the LEONOR. The patient was not presented to, seen by, or examined by me. -Evelyn
--- NOTE | 2017-09-10 12:53 | ED ---
Progress - Progress Note Progress Note: Urine culture grew out ESBL resistent to Keflex, so re-sent to pharmacy Macrobid 100 BID x 7 days Please call pt and inform pt her urine results and to ultrasound supervisor new abx Course/Dx - Course Course Of Treatment: During the [facility], the patient's evaluated for UTI symptoms. Endorses frequency, urgency, burning and suprapubic tenderness. UA obtained which shows N leukocytes. She is given Keflex 500 mg 4 times daily 5 days. Also given Pyridium. She is given Keflex prior to her discharge from the . She is okay with this plan. Discharge - Sign-Out/Discharge Documenting (check all that apply): Patient Departure - Discharge Plan Condition: Stable Disposition: HOME Prescriptions: Cephalexin CAP* [Keflex CAP*] 500 mg PO QID #20 cap MDD 4 Phenazopyridine TAB* [Pyridium 100 mg TAB*] 100 mg PO TID #12 tab Patient Education Materials: Urinary Tract Infection in Women (ED) Referrals: Megha Merrill MD [Primary Care Provider] - Additional Instructions: Drink plenty of water Keflex four times daily x 5 days Pyridium up to three times daily as needed - Billing Disposition and Condition Condition: STABLE Disposition: Home
== END 2017-09-08 11:22 | disposition home or self-care (01) ==
LOC: UCEAST 10:19
DX: N39.0 Urinary tract infection, site not specified (principal); F17.210 Nicotine dependence, cigarettes, uncomplicated; Z88.0 Allergy status to penicillin; Z88.6 Allergy status to analgesic agent; Z91.040 Latex allergy status
CPT/HCPCS: 81003; 87077; 87086; 87186; 99212; A9270-GY; G0463

== ENCOUNTER 2017-10-03 11:34 | Emergency (ER) | payer BC ==
[2017-10-03 12:38] VITALS: BP 163/104
--- NOTE | 2017-10-03 12:43 | UC ---
Bite Injury/Animal HPI - HPI Summary HPI Summary: This is scribe Keira Hirsch documenting for attending Dr. Elizabeth MD. 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 She picked up her dog, her dog started yelping and bit her accidentally. Pt had her last tetanus shot in 2010. I, Dr. Johnson, personally performed the services described in this documentation as scribed in my presence and it is both accurate and complete. - History of Current Complaint Chief Complaint: UCBiteInjury Stated Complaint: DOG BITE Hx Obtained From: Patient Hx Last Menstrual Period: Pt is menopausal Severity Currently: Mild Severity Initially: Mild Pain Intensity: 3 Pain Scale Used: 0-10 Numeric Onset/Duration: Sudden Onset, Lasting Hours - This morning Type of Bite: Pet - dog Has Animal Been Immunized?: Yes Character: Puncture, Abrasion/Laceration - 6mm total V-shaped. Nonbleeding Hx of Bite: Unprovoked Animal Available for Observation: Yes Animal Control Notified: No - Allergies/Home Medications Allergies/Adverse Reactions: Allergies Allergy/AdvReac Type Severity Reaction Status Date / Time amoxicillin Allergy Rash Verified 10/03/17 12:31 ampicillin Allergy Rash Verified 10/03/17 12:31 aspirin Allergy See Comment Verified 10/03/17 12:31 latex Allergy Rash Verified 10/03/17 12:31 NSAIDS (Non-Steroidal Allergy See Comment Verified 10/03/17 12:31 Anti-Inflamma PMH/Surg Hx/FS Hx/Imm Hx Previously Healthy: No Cardiovascular History: Hypertension Respiratory History: Asthma Cancer History: Other Other Cancer History: skin cancer Other History Of: Negative For: Anticoagulant Therapy - Surgical History Surgical History: Yes Surgery Procedure, Year, and Place: tonsillectomy age 19 [place]. D&C x3 in [place]. Tubal ligation 1993 [place]. hysterectomy with bladder lift 2001 [place]. sinus surgeries [place]1 with rhinoplasty and silicone chin [place] [facility] [place]. [place] upper [place] squamous [place] [facility] [place] Family History Known Family History: Positive: Cardiac Disease, Hypertension, Diabetes, Renal Disease - Social History Occupation: Employed Full-time Lives: With Family Alcohol Use: Rare Substance Use Type: None Smoking Status (MU): Light Every Day Tobacco Smoker Type: Cigarettes Amount Used/How Often: 1/2 ppd Length of Time of Smoking/Using Tobacco: since 2006 Have You Smoked in the Last Year: Yes Household Exposure Type: Cigarettes - Immunization History Most Recent Influenza Vaccination: 2016 Most Recent Tetanus Shot: 2010 Review of Systems Constitutional: Negative - fever Skin: Other - Abrasion and skin tear on upper left lip All Other Systems Reviewed And Are Negative: Yes Physical Exam - Summary Physical Exam Summary: Appearance: Well appearing, no pain distress Skin: warm, dry, reflects adequate perfusion. Skin tear and abrasion on left upper lip that is 6mm total, V-shaped. Non-bleeding. Head/face: normal Eyes: EOMI, ROMÁN ENT: normal Neck: supple, non-tender Respiratory: CTA, breath sounds present Cardiovascular: RRR, pulses symmetrical Abdomen: non-tender, soft Bowel Sounds: present Musculoskeletal: normal, strength/ROM intact Neuro: normal, sensory motor intact, A&Ox3 Triage Information Reviewed: Yes Vital Signs: Initial Vital Signs Temp 98.5 F 10/03/17 12:32 Pulse 62 10/03/17 12:32 Resp 16 10/03/17 12:32 BP 163/104 10/03/17 12:32 Pulse Ox 96 10/03/17 12:32 Vital Signs Reviewed: Yes Procedures - Laceration/Wound Repair 1 Location: mouth - upper L lip Description: Irregular - V-shaped Anesthesia: 1.0%, Lido - .5cc, infraorbital nerve block Betadine Prep?: No Irrigated w/ Saline (ccs): 30 Laceration/Wound Explored: clean Closure: Single Layer - half buried horizontal mattress suture Debridement: minimal Suture Type: Prolene - 6-0 Number of Sutures: 1 Layer Closure?: Yes Sterile Dressing Applied?: Yes Bite Injury Course/Dx - Course Course Of Treatment: BP noted and advised to follow up with PCP. Patient was anesthetized with an infraorbital nerve block and then irrigated through the needle into the wound. She was started on antibiotics. 1 stitch loosely approximated the wound. She is discharged in good condition after tetanus was updated. Dog has up-to-date vaccines and is her patent. - Differential Dx/Diagnosis Provider Diagnoses: 1. HTN. 2. Dog bite to face with laceration Discharge - Sign-Out/Discharge Documenting (check all that apply): Patient Departure - Discharge Plan Condition: Improved Disposition: HOME Prescriptions: Ciprofloxacin TAB* [Cipro 500 MG TAB*] 500 mg PO BID #10 tab metroNIDAZOLE [Flagyl 500 MG TAB] 500 mg PO TID #15 tab Patient Education Materials: Animal Bite (ED), Care For Your Stitches (ED) Referrals: Megha Merrill MD [Primary Care Provider] - Additional Instructions: Follow up with PCP, ED, or urgent care in 5-7 days to have stitches removed. Your blood pressure was elevated during todays visit; please follow up with your primary care provider within a week for further evaluation. Dress with bacitracin ointment. Return with concern for infection, worse or other concerns. Probiotic or Activia yogurt may prevent diarrhea while taking antibiotics. - Billing Disposition and Condition Condition: IMPROVED Disposition: Home
[2017-10-03] MEDS ORDERED: Tetan/Diph/Pertus SYR(Tdap)* 0.5 ML SYR(BOOSTRIX) use SYR IM ONE (13:13)
== END 2017-10-03 13:26 | disposition home or self-care (01) ==
LOC: UCEAST 11:34
DX: S01.511A Laceration without foreign body of lip, initial encounter (principal); W54.0XXA Bitten by dog, initial encounter; Y93.89 Activity, other specified; Y92.9 Unspecified place or not applicable; Z23 Encounter for immunization; I10 Essential (primary) hypertension; Z88.0 Allergy status to penicillin; Z88.6 Allergy status to analgesic agent; Z91.040 Latex allergy status; Z82.49 Family history of ischemic heart disease and other diseases of the circulatory system; Z83.3 Family history of diabetes mellitus; Z84.1 Family history of disorders of kidney and ureter; F17.210 Nicotine dependence, cigarettes, uncomplicated
CPT/HCPCS: 12011; 90715; 99212; G0463

== ENCOUNTER → 2018-02-17 11:55 | Emergency (ER) | payer BC ==
[~2018-02-17 11:55] MED LIST changes: +Albuterol/Ipratropium NEB.SOL* Albuterol 2.5 MG/Ipratropium 0.5 MG 3 ML INH ONE; -Buffered Lidocaine 0.9% SYRIN* 5 ML/SYR SYRINGE INTRADERM ONE; -Dexamethasone IV* 4 MG/ML 1 ML (4 MG) IV SLOW PU ONE; -Dexamethasone IV* 4 MG/ML 1 ML (4 MG) ONE; -DiMENhydriNATE IV* 50 MG/ML VIAL IV PUSH PRN; -Famotidine IV* 10 MG/ML 2 ML (20 mg) IV ONE; -Famotidine IV* 10 MG/ML 2 ML (20 mg) ONE; -Ketorolac INJ* 30 MG/ML 1 ML VIAL ONE; -Lidocaine 1% MPF wEPI 200,000* 30 ML SDV ONE; -Lidocaine 4% TOPICAL* 50 ML TOP.SOLN ONE; -Midazolam* 1 MG/ML 2 ML VIAL (2 MG) ONE; -Naloxone* 0.4 MG/ML 1 ML VIAL IV PRN; -Ondansetron INJ* 2 MG/ML VIAL ONE; -Oxymetazoline 0.05% NASAL SPR* 15 ML BTL ONE; -Propofol* 10 MG/ML 20 ML BTL IV PUSH ONE; -Scopolamine 1.5 mg* PATCH ONE; -Scopolamine 1.5 mg* PATCH TRANSDERM ONE; -Triamcinolone Acetonide* 40 MG/ML 1 ML VIAL ONE; -fentaNYL* 50 MCG/ML 2 ML VIAL (100 MCG VIAL) ONE
[2018-02-17 15:54] VITALS: BP 156/87
--- NOTE | 2018-02-17 18:15 | ED ---
Shortness of Breath - HPI Summary HPI Summary: Patient is otherwise healthy 62-year-old female with a history of asthma presenting to the ED with a potential asthma exacerbation. She states of the past several days she's been having worsening SOB and especially last evening awoke coughing with SOB and concerned she could not catch her breath. She states this happened in the past and has needed steroids for good relief. She has been taking Flovent and albuterol without relief of her symptoms. She was seen last week and given a Z-Rene which improved her symptoms over the next few days, however the symptoms worsened. She continues to cough without production. She denies any chest pain. She denies any other concerns of this date. She denies any fevers, however endorses sweats at baseline. - History of Current Complaint Chief Complaint: EDShortnessOfBreath Time Seen by Provider: 02/17/18 12:50 Hx Obtained From: Patient Onset/Duration: Gradual Onset Timing: Constant Current Severity: Moderate Dyspnea At: Rest Aggrevating Factors: Nothing Alleviating Factors: Upright Position Associated Signs & Symptoms: Cough (Nonproductive) - Risk Factors Pulmonary Embolism: Negative Cardiac: Negative Pseudomonas: Chronic Lung Disease Tuberculosis: Negative - Allergy/Home Medications Allergies/Adverse Reactions: Allergies Allergy/AdvReac Type Severity Reaction Status Date / Time amoxicillin Allergy Rash Verified 02/17/18 12:34 ampicillin Allergy Rash Verified 02/17/18 12:34 aspirin Allergy See Comment Verified 02/17/18 12:34 latex Allergy Rash Verified 02/17/18 12:34 NSAIDS (Non-Steroidal Allergy See Comment Verified 02/17/18 12:34 Anti-Inflamma PMH/Surg Hx/FS Hx/Imm Hx Previously Healthy: Yes Endocrine/Hematology History: Reports: Hx Thyroid Disease - hypo Denies: Hx Anticoagulant Therapy, Hx Diabetes Cardiovascular History: Reports: Hx Hypertension Denies: Hx Pacemaker/ICD Respiratory History: Reports: Hx Asthma, Other Respiratory Problems/Disorders - chronic pansinusitis Denies: Hx Chronic Obstructive Pulmonary Disease (COPD) GI History: Reports: Hx Irritable Bowel - not diagnosed History: Reports: Other Problems/Disorders - hx UTI's, chronic hematuria, kidney biopsy in 1975, no f/u Denies: Hx Dialysis, Hx Renal Disease Musculoskeletal History: Reports: Other Musculoskeletal History - "bulging disc " - saw jayden, no f/u needed Sensory History: Reports: Hx Contacts or Glasses - readers Denies: Hx Hearing Aid Opthamlomology History: Reports: Hx Contacts or Glasses - readers Neurological History: Reports: Hx Migraine - none since hysterectomy Denies: Hx Dementia, Hx Seizures Psychiatric History: Reports: Hx Anxiety Denies: Hx Panic Disorder, Hx Substance Abuse - Cancer History Cancer Type, Location and Year: skin Hx Chemotherapy: No Hx Radiation Therapy: No - Surgical History Surgery Procedure, Year, and Place: tonsillectomy age 19 [place]. D&[place] x3 [place]. Tubal ligation 1993 [place]. hysterectomy with bladder lift 2001 [place]. sinus surgeries (1 with rhinoplasty and silicone chin implant) [place]3 [place]2 [place], [place] [facility] [place] wisdom teeth extraction in dental office. 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 , History Other Infectious Disease - HX + PPD Denies: Hx Clostridium Difficile, Hx Hepatitis, Hx Human Immunodeficiency Virus (HIV), Hx of Known/Suspected MRSA, Hx Shingles, Hx Known/Suspected VRE, Hx Known/Suspected VRSA, Traveled Outside the [place] in Last 30 Days - Family History Known Family History: Positive: Cardiac Disease, Hypertension, Diabetes, Renal Disease - Social History Occupation: Employed Full-time Lives: With Family Alcohol Use: Rare Hx Substance Use: No Substance Use Type: Reports: None Hx Tobacco Use: Yes Smoking Status (MU): Current Every Day Smoker Type: Cigarettes Amount Used/How Often: 1/2 ppd Length of Time of Smoking/Using Tobacco: since 2006 Have You Smoked in the Last Year: Yes Review of Systems Constitutional: Negative Negative: Fever, Chills, Fatigue, Skin Diaphoresis Negative: Palpitations, Chest Pain Positive: Shortness Of Breath, Cough Negative: Abdominal Pain, Vomiting, Diarrhea, Nausea Genitourinary: Negative Positive: no symptoms reported, see HPI Negative: Arthralgia, Myalgia Negative: Headache, Weakness All Other Systems Reviewed And Are Negative: Yes Physical Exam Triage Information Reviewed: Yes Vital Signs On Initial Exam: Initial Vitals Temp Pulse Resp BP Pulse Ox 99.3 F 66 24 156/97 98 02/17/18 12:31 12/28/18 12:31 02/17/18 12:31 02/17/18 12:31 02/17/18 12:31 Vital Signs Reviewed: Yes Appearance: Positive: Well-Appearing, Well-Nourished Skin: Positive: Warm, Skin Color Reflects Adequate Perfusion Head/Face: Positive: Normal Head/Face Inspection Eyes: Positive: EOMI, ROMÁN, Conjunctiva Clear Neck: Positive: Supple, No Lymphadenopathy Respiratory/Lung Sounds: Positive: Clear to Auscultation, Breath Sounds Present Cardiovascular: Positive: RRR, Pulses are Symmetrical in both Upper and Lower Extremities Musculoskeletal: Positive: Normal, Strength/ROM Intact Neurological: Positive: Sensory/Motor Intact, Alert, Oriented to Person Place, Time Psychiatric: Positive: Normal, Affect/Mood Appropriate AVPU Assessment: Alert Diagnostics - Vital Signs Vital Signs Temp Pulse Resp BP Pulse Ox 02/17/18 15:52 98.8 F 79 16 156/87 96 02/17/18 15:12 64 14 95 02/17/18 15:00 64 91 02/17/18 14:52 61 124/76 94 02/17/18 14:22 75 155/89 94 02/17/18 14:02 93 96 02/17/18 13:52 71 145/78 93 02/17/18 13:22 69 166/84 95 02/17/18 13:00 67 14 98 02/17/18 12:52 73 97 02/17/18 12:31 99.3 F 66 24 156/97 98 - Laboratory Lab Results: Lab Results 02/17/18 Range/Units 12:55 Influenza A (Rapid) Negative (Negative) Influenza B (Rapid) Negative (Negative) Lab Statement: Any lab studies that have been ordered have been reviewed, and results considered in the medical decision making process. Course/Dx - Course Course Of Treatment: Patient is evaluated for a possible COPD/asthma exacerbation. On physical examination, lung sounds wheezing bilaterally without adventitious rhonchorous sounds. Patient is nontoxic in appearing, nondiaphoretic. She is afebrile on arrival and other vital signs are stable. She is giving a breathing treatment on arrival, chest x-ray obtained. Chest x- ray shows no active acute cardiopulmonary disease. She is given a steroid taper for her symptoms and refilled to [facility] for home. She is also given Tessalon Perles for cough. She will follow up with PCP. She is given one more breathing treatment prior to discharge and feels improved. - Diagnoses Provider Diagnoses: Bronchitis, Asthma exacerbation Discharge - Sign-Out/Discharge Documenting (check all that apply): Patient Departure - Discharge Plan Condition: Stable Disposition: HOME Prescriptions: Benzonatate CAP* [Tessalon CAP*] 100 mg PO TID #21 cap Ipratropium 0.5MG/2.5ML NEB* [Atrovent 0.5 MG NEB.LUNA*] 0.5 mg INH Q4H PRN #20 meb.soln PRN Reason: Sob/Wheezing predniSONE TAB* [Deltasone 10 MG TAB*] 10 mg PO DAILY #30 tab Referrals: Megha Merrill MD [Primary Care Provider] - Additional Instructions: Nebulizer treatments as needed for shortness of breath Tessalon up to three times daily for cough Prednisone as directed - Billing Disposition and Condition Condition: STABLE Disposition: Home
== END | disposition home or self-care (01) ==
LOC: ED 11:55
DX: J40 Bronchitis, not specified as acute or chronic (principal); J45.901 Unspecified asthma with (acute) exacerbation; R05 Cough; R06.02 Shortness of breath; Z88.0 Allergy status to penicillin; F17.210 Nicotine dependence, cigarettes, uncomplicated
CPT/HCPCS: 71046; 99282; A9270-GY

== ENCOUNTER 2018-05-05 16:05 | Emergency (ER) | payer BC ==
--- NOTE | 2018-05-05 17:22 | UC ---
Abdominal Pain Female HPI - HPI Summary HPI Summary: Pt c/o sudden onset of abdominal discomfort and daily, frequent diarrhea X 3 weeks. Pt has hx of IBS - History of Current Complaint Chief Complaint: UCGI Stated Complaint: ABDOMINAL COMPLAINT Time Seen by Provider: 05/05/18 17:12 Hx Obtained From: Patient Hx Last Menstrual Period: Pt is menopausal ?: No Onset/Duration: Sudden Onset, Lasting Weeks, Still Present Timing: Intermittent Episodes Lasting: Severity Initially: Moderate Severity Currently: Moderate Pain Intensity: 4 Location: Diffuse Radiates: No Character: Colicy, Dull Aggravating Factor(s): Food Alleviating Factor(s): Nothing Associated Signs and Symptoms: Positive: Diarrhea - Risk Factors Ectopic Risk Factor: Negative Ovarian Torsion Risk Factor: Negative Allergies/Adverse Reactions: Allergies Allergy/AdvReac Type Severity Reaction Status Date / Time amoxicillin Allergy Rash Verified 05/05/18 17:05 ampicillin Allergy Rash Verified 05/05/18 17:05 aspirin Allergy See Comment Verified 05/05/18 17:05 latex Allergy Rash Verified 05/05/18 17:05 NSAIDS (Non-Steroidal Allergy See Comment Verified 05/05/18 17:05 Anti-Inflamma Home Medications: Home Medications Beclomethasone Dipropionate [Qnasl] 10.6 gm INH BEDTIME 05/05/18 [History Confirmed 05/05/18] Melatonin/Pyridoxine HCl (B6) [Melatonin 5 mg Tablet] 1 tab PO BEDTIME 05/05/18 [History Confirmed 05/05/18] PMH/Surg Hx/FS Hx/Imm Hx Previously Healthy: Yes Cardiovascular History: Hypertension Other History Of: Negative For: Anticoagulant Therapy - Surgical History Surgical History: Yes Surgery Procedure, Year, and Place: tonsillectomy age 19 [place]. D&[place] x3 [place]. Tubal ligation 1993 [place]. hysterectomy with bladder lift 2001 [place]. sinus surgeries (1 with rhinoplasty and silicone chin implant) [place]2 [place], [place] [facility] [place] dental office. left upper thigh squamous cell removed [place] [facility] [place] - Family History Known Family History: Positive: Cardiac Disease, Hypertension, Diabetes, Renal Disease - Social History Occupation: Employed Full-time Lives: With Family Alcohol Use: Rare Substance Use Type: None Smoking Status (MU): Current Every Day Smoker Type: Cigarettes Amount Used/How Often: 1/2 ppd Length of Time of Smoking/Using Tobacco: since 2006 Have You Smoked in the Last Year: Yes Household Exposure Type: Cigarettes - Immunization History Most Recent Influenza Vaccination: 2016 Most Recent Tetanus Shot: 2010 Review of Systems All Other Systems Reviewed And Are Negative: Yes Constitutional: Positive: Fatigue Skin: Positive: Negative Eyes: Positive: Negative ENT: Positive: Negative Respiratory: Positive: Negative Cardiovascular: Positive: Negative Gastrointestinal: Positive: Diarrhea Genitourinary: Positive: Negative Motor: Positive: Negative Neurovascular: Positive: Negative Musculoskeletal: Positive: Myalgia Neurological: Positive: Weakness Psychological: Positive: Negative Is Patient Immunocompromised?: No Physical Exam Triage Information Reviewed: Yes Appearance: Well-Appearing Vital Signs: Initial Vital Signs Temp 98.4 F 05/05/18 17:00 Pulse 78 05/05/18 17:00 Resp 16 05/05/18 17:00 BP 200/106 05/05/18 17:00 Pulse Ox 96 05/05/18 17:00 Vital Signs Reviewed: Yes Eye Exam: Normal ENT Exam: Normal Dental Exam: Normal Neck exam: Normal Respiratory Exam: Normal Cardiovascular Exam: Normal Abdominal Exam: Other - generalized tenderness Bowel Sounds: Positive: Present Musculoskeletal Exam: Normal Neurological Exam: Normal Psychological Exam: Normal Skin Exam: Normal Abd Pain Female Course/Dx - Course Course Of Treatment: Pt has known exposure to C-difficile. - Differential Dx/Diagnosis Differential Diagnosis: Diverticulitis, Irritable Bowel Syndrome Provider Diagnosis: Abdominal pain, Diarrhea Discharge - Sign-Out/Discharge Documenting (check all that apply): Patient Departure All imaging exams completed and their final reports reviewed: No Studies - Discharge Plan Condition: Stable Disposition: HOME Patient Education Materials: Acute Diarrhea (ED), Hypertension (ED) Referrals: Megha Merrill MD [Primary Care Provider] - As Soon As Possible - Billing Disposition and Condition Condition: STABLE Disposition: Home
[2018-05-05 17:24] VITALS: BP 200/100
--- NOTE | 2018-05-07 08:32 | UC ---
- Progress Note Progress Note: 05/07/2018 Stool specimen: C. difficil PCR final : negative for Toxigenic C.Difficil Stool culture: still pending final report. No change Ruthann Suresh PA-C Course/Dx - Diagnoses Provider Diagnoses: Abdominal pain, Diarrhea Discharge - Sign-Out/Discharge Documenting (check all that apply): Patient Departure - D/C home All imaging exams completed and their final reports reviewed: No Studies - Discharge Plan Condition: Stable Disposition: HOME Patient Education Materials: Acute Diarrhea (ED), Hypertension (ED) Referrals: Megha Merrill MD [Primary Care Provider] - As Soon As Possible - Billing Disposition and Condition Condition: STABLE Disposition: Home
== END 2018-05-05 17:30 | disposition home or self-care (01) ==
LOC: UCEAST 16:05
DX: R19.7 Diarrhea, unspecified (principal); R10.9 Unspecified abdominal pain; F17.210 Nicotine dependence, cigarettes, uncomplicated; I10 Essential (primary) hypertension; Z88.8 Allergy status to other drugs, medicaments and biological substances; Z88.0 Allergy status to penicillin; Z91.040 Latex allergy status
CPT/HCPCS: 82272; 87045; 87046; 87077; 87147; 87328; 87329; 87493; 87899; 99211; G0463

== ENCOUNTER 2018-05-15 10:57 | Emergency (ER) | payer BC ==
[2018-05-15] MEDS ORDERED: Ondansetron TAB* 4 MG PO ONE (11:13)
[2018-05-15] MEDS ORDERED: NS 0.9% 1000 ML** 1,000 ML IV ONE (11:13)
--- NOTE | 2018-05-15 11:13 | ED ---
GI/ HPI - HPI Summary HPI Summary: This pt is a 62 y/o female presenting [place] [facility] c/o nausea, vomiting, diarrhea. Pt reports she has had diarrhea for the past 2.5 weeks. She went to Urgent Care on 05/05/18 for the same symptoms and her stool was tested, which was negative for C. diff. She notes 3 days ago she had emesis after eating. Last night and today pt has had a lot of episodes of emesis, approximately 11 episodes in total. Pt notes abd cramping right before episodes of diarrhea and feeling nauseous. Denies fever, SOB, chest pain. Denies sick contacts at home. Denies recent long distance travel. She last took antibiotics in January 2018. PMHx includes IBS. Her last colonoscopy was 7 years ago and notes it was normal. - History of Current Complaint Chief Complaint: EDNauseaVomitDiarrh Time Seen by Provider: 05/15/18 11:06 Stated Complaint: DIARRHEA FOR 2WKS/ABD CRAMPS PER PT Hx Obtained From: Patient Hx Last Menstrual Period: Pt is menopausal Onset/Duration: Started Weeks Ago, Still Present Timing: Lasting Weeks Current Severity: Moderate Pain Intensity: 0 - denies pain currently Location of Pain: None Associated Signs and Symptoms: Positive: Nausea, Vomiting, Diarrhea. Negative: Fever, Chest Pain Aggravating Factor(s): Nothing Alleviating Factor(s): Nothing - Allergy/Home Medications Allergies/Adverse Reactions: Allergies Allergy/AdvReac Type Severity Reaction Status Date / Time amoxicillin Allergy Rash Verified 05/05/18 17:05 ampicillin Allergy Rash Verified 05/05/18 17:05 aspirin Allergy See Comment Verified 05/05/18 17:05 clindamycin Allergy Diarrhea Verified 05/15/18 11:02 latex Allergy Rash Verified 05/05/18 17:05 NSAIDS (Non-Steroidal Allergy See Comment Verified 05/05/18 17:05 Anti-Inflamma Home Medications: Home Medications ALPRAZolam TAB* [Xanax TAB*] 0.5 mg PO BEDTIME PRN 05/15/18 [History Confirmed 05/15/18] Albuterol 2.5MG/3ML (0.083%)* [Ventolin 2.5 MG/3 ML NEB.LUNA*] 2.5 mg INH BID PRN 05/15/18 [History Confirmed 05/15/18] Albuterol HFA INHALER* [Ventolin HFA Inhaler*] 2 puff INH BID PRN 05/15/18 [ History Confirmed 05/15/18] Citalopram TAB* [Celexa TAB*] 20 mg PO QAM 05/15/18 [History Confirmed 05/15/18] Conjugated Estrogens TAB* [Premarin TAB*] 0.3 mg PO DAILY 05/15/18 [History Confirmed 05/15/18] LevoCETirizine TAB (NF) [Xyzal TAB (NF)] 5 mg PO DAILY 05/15/18 [History Confirmed 05/15/18] Levothyroxine TAB* [Synthroid TAB*] 50 mcg PO DAILY 05/15/18 [History Confirmed 05/15/18] Mometasone Furoate [Elocon] 0.1 % TOPICAL BEDTIME PRN 05/15/18 [History Confirmed 05/15/18] Montelukast Sodium TAB* [Singulair 5 mg TAB*] 5 mg PO DAILY 05/15/18 [History Confirmed 05/15/18] Omeprazole CAP (NF) [Prilosec CAP* 20 MG] 20 mg PO DAILY 05/15/18 [History Confirmed 05/15/18] PMH/Surg Hx/FS Hx/Imm Hx Endocrine/Hematology History: Reports: Hx Thyroid Disease - hypo Denies: Hx Anticoagulant Therapy, Hx Diabetes Cardiovascular History: Reports: Hx Hypertension Denies: Hx Pacemaker/ICD Respiratory History: Reports: Hx Asthma, Other Respiratory Problems/Disorders - chronic pansinusitis Denies: Hx Chronic Obstructive Pulmonary Disease (COPD) GI History: Reports: Hx Irritable Bowel - not diagnosed History: Reports: Other Problems/Disorders - hx UTI's, chronic hematuria, kidney biopsy in 1975, no f/u Denies: Hx Dialysis, Hx Renal Disease Musculoskeletal History: Reports: Other Musculoskeletal History - "bulging disc " - saw jayden, no f/u needed Sensory History: Reports: Hx Contacts or Glasses - readers Denies: Hx Hearing Aid Opthamlomology History: Reports: Hx Contacts or Glasses - readers Neurological History: Reports: Hx Migraine - none since hysterectomy Denies: Hx Dementia, Hx Seizures Psychiatric History: Reports: Hx Anxiety Denies: Hx Panic Disorder, Hx Substance Abuse - Cancer History Cancer Type, Location and Year: skin Hx Chemotherapy: No Hx Radiation Therapy: No - Surgical History Surgery Procedure, Year, and Place: tonsillectomy age 19 [place]. D&C x3 [place]. Tubal ligation 1993 [place]. hysterectomy with bladder lift 2001 [place]. sinus surgeries (1 with rhinoplasty and silicone chin implant) [place]2 [place] [facility] [place] dental office. left upper thigh squamous cell [place] [facility] 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 , History Other Infectious Disease - HX + PPD Denies: Hx Clostridium Difficile, Hx Hepatitis, Hx Human Immunodeficiency Virus (HIV), Hx of Known/Suspected MRSA, Hx Shingles, Hx Known/Suspected VRE, Hx Known/Suspected VRSA, Traveled Outside the in Last 30 Days - Family History Known Family History: Positive: Cardiac Disease, Hypertension, Diabetes, Renal Disease - Social History Alcohol Use: Rare Hx Substance Use: No Substance Use Type: Reports: None Hx Tobacco Use: Yes Smoking Status (MU): Current Every Day Smoker Type: Cigarettes Amount Used/How Often: 1/2 ppd Length of Time of Smoking/Using Tobacco: since 2006 Have You Smoked in the Last Year: Yes Review of Systems Negative: Fever Negative: Chest Pain Negative: Shortness Of Breath Positive: Abdominal Pain - cramping, Vomiting, Diarrhea, Nausea All Other Systems Reviewed And Are Negative: Yes Physical Exam - Summary Physical Exam Summary: VITAL SIGNS: Reviewed. GENERAL: Patient is a well-developed and nourished female who is lying comfortable in the stretcher. Patient is not in any acute respiratory distress. HEAD AND FACE: Normocephalic and atraumatic. EYES: PERRLA, EOMI x 2, No injected conjunctiva. EARS: Hearing grossly intact. Ear canals and tympanic membranes are WNL. MOUTH: Oropharynx within normal limits. NECK: Supple, trachea is midline, no adenopathy, no JVD. CHEST: Symmetric, no tenderness at palpation LUNGS: Clear to auscultation bilaterally. No wheezing or crackles. CVS: RRR, S1 and S2 present, no murmurs or gallops appreciated. ABDOMEN: Soft, non-tender. No signs of distention. Increased bowel sounds. No rebound no guarding, and no masses palpated. No abdominal bruit or pulsations. EXTREMITIES: FROM in all major joints, no edema, no cyanosis or clubbing. NEURO: Alert and oriented x 3. No acute neurological deficits. Speech is normal. SKIN: Dry and warm Triage Information Reviewed: Yes Vital Signs On Initial Exam: Initial Vitals Temp Pulse Resp BP Pulse Ox 98.4 F 63 18 208/107 97 05/15/18 11:00 05/15/18 11:00 05/15/18 11:00 05/15/18 11:00 05/15/18 11:00 Vital Signs Reviewed: Yes Diagnostics - Vital Signs Vital Signs Temp Pulse Resp BP Pulse Ox 05/15/18 11:00 98.4 F 63 18 208/107 97 - Laboratory Result Diagrams: 05/15/18 11:47 05/15/18 11:47 Lab Statement: Any lab studies that have been ordered have been reviewed, and results considered in the medical decision making process. - CT Abdomen/Pelvis CT CT Interpretation Completed By: Radiologist Summary of CT Findings: IMPRESSION: No abnormal masses or fluid collections are noted. Low density lesion in the liver likely represents a hemangioma. Left renal cyst is noted. Normal appendix is documented. No evidence of bowel obstruction is noted. Dr. Dobson has reviewed this report. - EKG 11:27 Cardiac Rate: Bradycardia - at 55 bpm EKG Rhythm: Sinus Bradycardia Summary of EKG Findings: No ST elevations. Re-Evaluation - Re-Evaluation First Eval Re-Evaluation Time: 13:35 Comment: I reviewed the lab and CT results with the pt. She will be discharged home with follow up from her PCP. GIGU Course/Dx - Course Assessment/Plan: Patient is a 62-year-old female who presents to the emergency department with chief complaint of having nausea, vomiting and diarrhea as well as abdominal cramping for the last 2 weeks. She was tested for C. difficile and it was negative. Blood work without any significant abnormality except for CRP of 13.6. Urinalysis is negative for UTI. Abdominal and pelvic CT IMPRESSION: No abnormal masses or fluid collections are noted. Low density lesion in the liver likely represents a hemangioma. Left renal cyst is noted. Normal appendix is documented. No evidence of bowel obstruction is noted. In the ED course the patient was given IV fluids for rehydration and she was given Zofran for nausea and vomiting. Since all the test results and CT scan are normal, the patient will be discharged home with follow-up from her PCP. - Diagnoses Provider Diagnoses: Nausea, vomiting, and diarrhea Discharge - Sign-Out/Discharge Documenting (check all that apply): Patient Departure - Discharge home Patient Received Moderate/Deep Sedation with Procedure: No - Discharge Plan Condition: Stable Disposition: HOME Prescriptions: Diphenoxylat/Atrop 2.5-0.025M* [Lomotil TAB*] 1 tab PO QID PRN #12 tab MDD 4 PRN Reason: Diarrhea Patient Education Materials: Acute Nausea and Vomiting (ED), Acute Diarrhea (ED ) Referrals: Megha Merrill MD [Primary Care Provider] - Additional Instructions: FOLLOW UP WITH YOUR PRIMARY CARE PROVIDER IN 2-3 DAYS. RETURN TO THE ED FOR ANY NEW OR WORSENING SYMPTOMS. - Billing Disposition and Condition Condition: STABLE Disposition: Home - Attestation Statements Document Initiated by Scribe: Yes Documenting Scribe: Ele Ellis Provider For Whom Srinivasa is Documenting (Include Credential): Jasvir Dobson MD Scribe Attestation: Ele Haney, scribed for Jasvir Dobson MD on 05/15/18 at 1845. Scribe Documentation Reviewed: Yes Provider Attestation: The documentation as recorded by the Ele drew accurately reflects the service I personally performed and the decisions made by , Jasvir Dobson MD Status of Scribe Document: Viewed
[2018-05-15 12:08] LABS: ABS Basophils 0 10^3/ul (0-0.2); ABS Eosinophils 0 10^3/ul (0-0.6); ABS Lymphocytes 1.3 10^3/ul (1.0-4.8); ABS Monocytes 0.6 10^3/ul (0-0.8); ABS Nucleated RBC 0 10^3/ul; Eosinophil % 0.5 %; Hematocrit 44 % (33-41); Hemoglobin 15.2 g/dL (12.0-16.0); Mean Corpuscular HGB Conc 35 g/dL (31-36); Mean Corpuscular Hemoglobin 31 pg (27-31); Mean Corpuscular Volume 91 fL (80-97); Mean Platelet Volume 8.5 fL (7.4-10.4); Nucleated Red Blood Cells % 0.5; Platelet Count 235 10^3/uL (150-450); Red Blood Count 4.84 10^6 /uL (3.70-4.87); Red Cell Distribution Width 14 % (10.5-15); White Blood Count 7.9 10^3/uL (3.5-10.8)
[2018-05-15 12:19] LABS: Urine Appearance Clear; Urine Bacteria Absent (Absent); Urine Bilirubin Negative (Negative); Urine Blood 2+ (Negative); Urine Color Straw; Urine Glucose Negative (Negative); Urine Ketones Negative (Negative); Urine Nitrite Negative (Negative); Urine Protein Negative (Negative); Urine Red Blood Cell Trace(0-2/hpf) (Absent); Urine Specific Gravity 1.002 (1.010-1.030); Urine Urobilinogen Negative (Negative); Urine White Blood Cell Absent (Absent)
[2018-05-15 12:22] LABS: Albumin 4.1 g/dL (3.2-5.2); Albumin/Globulin Ratio 1.8 (1-3); C Reactive Protein 13.65 mg/L (<8.01); Calcium 9.1 mg/dL (8.6-10.3); EGFR African American 94.7 (>60); EGFR Non-African American 78.3 (>60); Globulin 2.3 g/dL (2-4); Magnesium 1.9 mg/dL (1.9-2.7); Potassium 3.5 mmol/L (3.5-5.0); Total Bilirubin 0.3 mg/dL (0.2-1.0); Total Protein 6.4 g/dL (6.4-8.9)
[2018-05-15] MEDS ORDERED: Iohexol 300* (CONTRAST) 10 ML SDV IV ONE (12:27)
[2018-05-15 13:51] VITALS: BP 142/87
== END 2018-05-15 13:51 | disposition home or self-care (01) ==
LOC: ED 10:57
DX: R11.2 Nausea with vomiting, unspecified (principal); R19.7 Diarrhea, unspecified; Z88.0 Allergy status to penicillin; Z88.6 Allergy status to analgesic agent; I10 Essential (primary) hypertension; F17.210 Nicotine dependence, cigarettes, uncomplicated
CPT/HCPCS: 36415; 74177; 80053; 81003; 81015; 83690; 83735; 84484; 85025; 86140; 93005; 96360; 99283; A9270-GY; Q9967

== ENCOUNTER 2018-07-18 15:16 | Emergency (ER) | payer BC ==
[2018-07-18 18:11] VITALS: BP 163/87
--- NOTE | 2018-07-18 18:15 | UC ---
Complaint Female HPI - HPI Summary HPI Summary: 62 y/o female presents to the urgent care c/o frequency and burning and pressure on urination since this morning. pt w/ Hx of recurrent UT's and it usually E-Coli. She has little production of urine and she saw some blood in the tissue. Pt denies pelvic pain, lower back pain, flank pain, vaginal discharge, abdominal pain, N/V/D, Hx of STD's. - History Of Current Complaint Chief Complaint: UCGU Stated Complaint: UTI Time Seen by Provider: 07/18/18 18:12 Hx Obtained From: Patient Hx Last Menstrual Period: Pt is menopausal Onset/Duration: Gradual Onset, Lasting Days - 1 day, Still Present Timing: Intermittent, Lasting Seconds Severity Initially: Mild Severity Currently: Mild Pain Intensity: 4 Pain Scale Used: 0-10 Numeric Character: Burning Aggravating Factor(s): Urination Alleviating Factor(s): Nothing Associated Signs And Symptoms: Positive: Negative. Negative: Fever, Back Pain, Vaginal Discharge, Nausea, Vomiting(# Of Episodes =) Related Hx: Similar Episode/Dx as: - UTI - Risk Factors Ectopic Risk Factor: Negative Ovarian Torsion Risk Factor: Negative - Allergies/Home Medications Allergies/Adverse Reactions: Allergies Allergy/AdvReac Type Severity Reaction Status Date / Time amoxicillin Allergy Rash Verified 07/18/18 18:11 ampicillin Allergy Rash Verified 07/18/18 18:11 aspirin Allergy See Comment Verified 07/18/18 18:11 clindamycin Allergy Diarrhea Verified 07/18/18 18:11 latex Allergy Rash Verified 07/18/18 18:11 NSAIDS (Non-Steroidal Allergy See Comment Verified 07/18/18 18:11 Anti-Inflamma Home Medications: Home Medications Olmesartan Medoxomil [Benicar] 20 mg PO QPM 07/18/18 [History Confirmed 07/18/18 ] PMH/Surg Hx/FS Hx/Imm Hx Previously Healthy: Yes Cardiovascular History: Hypertension Other Neurological History: DDD Psychological History: Anxiety, Depression Other History Of: Negative For: Anticoagulant Therapy - Surgical History Surgical History: Yes Surgery Procedure, Year, and Place: tonsillectomy age 19 [place]. D&[place] x3 in [place]. Tubal ligation 1993 [place]. hysterectomy with bladder lift 2001 [place]. sinus surgeries (1 with rhinoplasty and silicone chin implant) x3 (2 [place], 1 [facility] wisdom teeth extraction in dental office. left upper thigh squamous cell removed - 2008 [facility]. 2018 sinus surgery - Family History Known Family History: Positive: Cardiac Disease, Hypertension, Diabetes, Renal Disease - Social History Occupation: Employed Full-time Lives: With Family Alcohol Use: Rare Substance Use Type: None Smoking Status (MU): Current Every Day Smoker Type: Cigarettes Amount Used/How Often: 1/2 ppd Length of Time of Smoking/Using Tobacco: since 2006 Have You Smoked in the Last Year: Yes Household Exposure Type: Cigarettes - Immunization History Most Recent Influenza Vaccination: 2016 Most Recent Tetanus Shot: 2010 Review of Systems All Other Systems Reviewed And Are Negative: Yes Constitutional: Positive: Negative Skin: Positive: Negative Eyes: Positive: Negative ENT: Positive: Negative Respiratory: Positive: Negative Cardiovascular: Positive: Negative Gastrointestinal: Positive: Negative Genitourinary: Positive: Dysuria, Hematuria, Frequency, Urgency Motor: Positive: Negative Neurovascular: Positive: Negative Musculoskeletal: Positive: Negative Neurological: Positive: Negative Psychological: Positive: Negative Is Patient Immunocompromised?: No Physical Exam - Summary Physical Exam Summary: VITAL SIGNS: Reviewed. GENERAL: Patient is a well developed and nourished female who is sitting comfortable in the examining table. Patient is not in any acute respiratory distress. HEAD AND FACE: No signs of trauma. No ecchymosis, hematomas or skull depressions. No sinus tenderness. EYES: PERRLA, EOMI x 2, No injected conjunctiva, clear watery eyes, no nystagmus. No photophobia. EARS: Hearing grossly intact. Ear canals and tympanic membranes are within normal limits. MOUTH: pharynx with no erythema, no exudates,no palatal petechiae. no B/L tonsillar enlargement Uvula in midline. NECK: Supple, trachea is midline, no lymphadenopathy, no JVD, no carotid bruit, no c-spine tenderness, neck with full ROM. CHEST: Symmetric, no tenderness at palpation LUNGS: Clear to auscultation bilaterally. No wheezing or crackles. CVS: Regular rate and rhythm, S1 and S2 present, no murmurs or gallops appreciated. ABDOMEN: Soft, non-tender. No signs of distention. No rebound no guarding, and no masses palpated. Bowel sounds are normal. BACK:no scoliosis or lesions, non tender to palpation, No B/L CVA tenderness EXTREMITIES: FROM in all major joints, no edema, no cyanosis or clubbing. NEURO: Alert and oriented x 3. No acute neurological deficits. Speech is normal and follows commands. SKIN: Dry and warm Triage Information Reviewed: Yes Vital Signs: Initial Vital Signs Temp 98.9 F 07/18/18 18:04 Pulse 80 07/18/18 18:04 Resp 18 07/18/18 18:04 BP 163/87 07/18/18 18:04 Pulse Ox 97 07/18/18 18:04 Complaint Female Dx - Course Course Of Treatment: 62 y/o female presents to the urgent care c/o frequency and burning and pressure on urination since this morning. pt w/ Hx of recurrent UT's and it usually E-Coli. She has little production of urine and she saw some blood in the tissue. Pt denies pelvic pain, lower back pain, flank pain, vaginal discharge, abdominal pain, N/V/D, Hx of STD's. Hx obtained. PE:WNL. UA ordered, UA results: Blood 3+, Leukoesterase 2+, Nitrates+. Pt Rx Batrim PO x 7 days. Pyridium 100mg PO TID x 2 days. Advised to increase fluid intake. Urine sent for culture if any abnormality Pt will be notified for further treatment. Pt advised If symptoms do not improve to return to the urgent care or f/u with PCP. Pt's BP is elevated today advised to decrease salt in diet, monitor BP and f/u with PCP for further management. Pt understood and agreed. Left the clinic ambulating. - Differential Dx/Diagnosis Differential Diagnosis/HQI/PQRI: Cervicitis, Renal Colic, Ureteral Stone, Urinary Tract Infection Provider Diagnosis: UTI (urinary tract infection), Uncontrolled hypertension Discharge - Sign-Out/Discharge Documenting (check all that apply): Patient Departure - d/C home All imaging exams completed and their final reports reviewed: No Studies - Discharge Plan Condition: Stable Disposition: HOME Prescriptions: Fluconazole 150 MG TAB* [Diflucan 150 MG TAB*] 150 mg PO ONCE #1 tablet Phenazopyridine TAB* [Pyridium 100 mg TAB*] 100 mg PO TID #6 tab Sulfamethox/Trimethoprim DS* [Bactrim DS 800/160 TAB*] 1 tab PO BID #14 tab Patient Education Materials: Urinary Tract Infection in Women (ED) Referrals: Megha Merrill MD [Primary Care Provider] - 3 Days Additional Instructions: 1- Please take Bactrim PO x 7 days. Pyridium 100 mg PO TID x 2 days to alleviate urinary symptoms. Increase increase fluid intake. drink cranberry juice. Please alos take yogurts w/ probiotics or Culturelle to protect you GI system 2-Urine sent for culture if any abnormality, you will be notified for further treatment. Take fluconazole PO if your develop the yeast infection after taking antibiotic 3-If symptoms do not improve please return to the urgent care or f/u with her PCP. 4- Your BP is elevated today. please decrease salt in your diet, monitor BP and if it continues to be elevated please f/u with your PCP for further management. - Billing Disposition and Condition Condition: STABLE Disposition: Home
--- NOTE | 2018-07-21 15:42 | UC ---
- Progress Note Progress Note: C/S returned, Sensitive to Bactrim which patient is on, no change in treatment needed. -Ailin Dickinson Course/Dx - Diagnoses Provider Diagnoses: UTI (urinary tract infection), Uncontrolled hypertension Discharge - Sign-Out/Discharge Documenting (check all that apply): Patient Departure All imaging exams completed and their final reports reviewed: No Studies - Discharge Plan Condition: Stable Disposition: HOME Prescriptions: Fluconazole 150 MG TAB* [Diflucan 150 MG TAB*] 150 mg PO ONCE #1 tablet Phenazopyridine TAB* [Pyridium 100 mg TAB*] 100 mg PO TID #6 tab Sulfamethox/Trimethoprim DS* [Bactrim DS 800/160 TAB*] 1 tab PO BID #14 tab Patient Education Materials: Urinary Tract Infection in Women (ED) Referrals: Megha Merrill MD [Primary Care Provider] - 3 Days Additional Instructions: 1- Please take Bactrim PO x 7 days. Pyridium 100 mg PO TID x 2 days to alleviate urinary symptoms. Increase increase fluid intake. drink cranberry juice. Please alos take yogurts w/ probiotics or Culturelle to protect you GI system 2-Urine sent for culture if any abnormality, you will be notified for further treatment. Take fluconazole PO if your develop the yeast infection after taking antibiotic 3-If symptoms do not improve please return to the urgent care or f/u with her PCP. 4- Your BP is elevated today. please decrease salt in your diet, monitor BP and if it continues to be elevated please f/u with your PCP for further management. - Billing Disposition and Condition Condition: STABLE Disposition: Home
== END 2018-07-18 18:50 | disposition home or self-care (01) ==
LOC: UCEAST 15:16
DX: N39.0 Urinary tract infection, site not specified (principal); I10 Essential (primary) hypertension; F17.210 Nicotine dependence, cigarettes, uncomplicated; Z88.0 Allergy status to penicillin; Z88.8 Allergy status to other drugs, medicaments and biological substances; Z88.1 Allergy status to other antibiotic agents; Z91.040 Latex allergy status
CPT/HCPCS: 81003; 87077; 87086; 87186; 99212; G0463

== ENCOUNTER 2018-11-13 18:31 | Emergency (ER) | payer BC ==
[2018-11-13 22:35] LABS: Urine Appearance Clear; Urine Bacteria Absent (Absent); Urine Bilirubin Negative (Negative); Urine Blood 2+ (Negative); Urine Color Yellow; Urine Glucose Negative (Negative); Urine Ketones Negative (Negative); Urine Nitrite Negative (Negative); Urine Protein 1+(30 mg/dL) (Negative); Urine Red Blood Cell 1+(3-5/hpf) (Absent); Urine Specific Gravity 1.014 (1.010-1.030); Urine Squamous Epithelial Cell Present (Absent); Urine Urobilinogen Negative (Negative); Urine White Blood Cell Trace(0-5/hpf) (Absent)
--- NOTE | 2018-11-13 22:37 | ED ---
Back Pain - HPI Summary HPI Summary: 63-year-old female presents with back pain for the past couple month. She states she's been getting numbness and tingling to her feet. She states numbness has been traveling more down her left foot into the balls of her feet. she states use to be just numbness in the toes. She denies any leg pain. No swelling. No known injury. She states that when she urinates she almost feels like she cannot control it but she is able to do so. Denies any loss of bowel. No saddle anesthesia. No fevers. Has been taking care of her mom who passing away so she has been lifting objects. - History of Current Complaint Chief Complaint: EDBackInjuryPain Stated Complaint: BACK PAIN/NUMBNESS IN BOTH FEET PER PT Time Seen by Provider: 11/13/18 21:59 Hx Last Menstrual Period: Pt is menopausal Pain Intensity: 0 - Allergies/Home Medications Allergies/Adverse Reactions: Allergies Allergy/AdvReac Type Severity Reaction Status Date / Time amoxicillin Allergy Rash Verified 11/13/18 18:41 ampicillin Allergy Rash Verified 11/13/18 18:41 aspirin Allergy See Comment Verified 11/13/18 18:41 clindamycin Allergy Diarrhea Verified 11/13/18 18:41 latex Allergy Rash Verified 11/13/18 18:41 NSAIDS (Non-Steroidal Allergy See Comment Verified 11/13/18 18:41 Anti-Inflamma PMH/Surg Hx/FS Hx/Imm Hx Endocrine/Hematology History: Reports: Hx Thyroid Disease - hypo Denies: Hx Anticoagulant Therapy, Hx Diabetes Cardiovascular History: Reports: Hx Hypertension Denies: Hx Pacemaker/ICD Respiratory History: Reports: Hx Asthma, Other Respiratory Problems/Disorders - chronic pansinusitis Denies: Hx Chronic Obstructive Pulmonary Disease (COPD) GI History: Reports: Hx Irritable Bowel - not diagnosed History: Reports: Other Problems/Disorders - hx UTI's, chronic hematuria, kidney biopsy in 1975, no f/u Denies: Hx Dialysis, Hx Renal Disease Musculoskeletal History: Reports: Other Musculoskeletal History - "bulging disc " - saw jayden, no f/u needed Sensory History: Reports: Hx Contacts or Glasses - readers Denies: Hx Hearing Aid Opthamlomology History: Reports: Hx Contacts or Glasses - readers Neurological History: Reports: Hx Migraine - none since hysterectomy Denies: Hx Dementia, Hx Seizures Psychiatric History: Reports: Hx Anxiety Denies: Hx Panic Disorder, Hx Substance Abuse - Cancer History Cancer Type, Location and Year: skin Hx Chemotherapy: No Hx Radiation Therapy: No - Surgical History Surgery Procedure, Year, and Place: tonsillectomy age 19 [place]. D&[place] x3 [place]. Tubal ligation 1993 [place]. hysterectomy with bladder lift 2001 [place]. sinus surgeries [place]1 with rhinoplasty and silicone chin implant[place], [place] [facility] [place] teeth [place] dental office. left upper thigh squamous cell removed [place] [facility] 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 , History Other Infectious Disease - HX + PPD Denies: Hx Clostridium Difficile, Hx Hepatitis, Hx Human Immunodeficiency Virus (HIV), Hx of Known/Suspected MRSA, Hx Shingles, Hx Known/Suspected VRE, Hx Known/Suspected VRSA, Traveled Outside the in Last 30 Days - Family History Known Family History: Positive: Cardiac Disease, Hypertension, Diabetes, Renal Disease - Social History Alcohol Use: Rare Hx Substance Use: No Substance Use Type: Reports: None Hx Tobacco Use: Yes Smoking Status (MU): Current Every Day Smoker Type: Cigarettes Amount Used/How Often: 1/2 ppd Length of Time of Smoking/Using Tobacco: since 2006 Have You Smoked in the Last Year: Yes Review of Systems Negative: Fever Negative: Chest Pain Negative: Shortness Of Breath Positive: Myalgia - back pain All Other Systems Reviewed And Are Negative: Yes Physical Exam Triage Information Reviewed: Yes Vital Signs On Initial Exam: Initial Vitals Temp Pulse Resp BP Pulse Ox 99.0 F 86 18 207/100 96 11/13/18 18:36 11/13/18 18:36 11/13/18 18:36 11/13/18 18:36 11/13/18 18:36 Vital Signs Reviewed: Yes Appearance: Positive: Well-Appearing Skin: Positive: Warm, Dry Head/Face: Positive: Normal Head/Face Inspection Eyes: Positive: Normal, Conjunctiva Clear ENT: Positive: Pharynx normal Respiratory/Lung Sounds: Positive: Clear to Auscultation, Breath Sounds Present Cardiovascular: Positive: Normal, RRR Abdomen Description: Positive: Nontender, Soft Bowel Sounds: Positive: Present Musculoskeletal: Positive: Strength/ROM Intact - back, Other - nontender lower back, sensation grossly intact legs and feet, capillary refill<2 secs, neg SLR Neurological: Positive: Normal, Babinski Bilateral - normal Psychiatric: Positive: Normal Diagnostics - Vital Signs Vital Signs Temp Pulse Resp BP Pulse Ox 11/13/18 21:15 98.2 F 61 18 157/74 96 11/13/18 18:36 99.0 F 86 18 207/100 96 - Laboratory Lab Statement: Any lab studies that have been ordered have been reviewed, and results considered in the medical decision making process. - CT back CT Interpretation Completed By: Radiologist Summary of CT Findings: IMPRESSION: 1. Levoscoliosis at L3. 2. Degenerative disc changes which are increased from L4-S1 since 12/27/2015. There is mild left neural foraminal stenosis which is new since the prior study. 3. Otherwise negative CT lumbar spine. Re-Evaluation - Re-Evaluation First Eval Comment: able to ambulate without difficulty in ED Back Pain Course/Dx - Course Course Of Treatment: 63-year-old female presents with back pain for the past couple month. She states she's been getting numbness and tingling to her feet. She states numbness has been traveling more down her left foot into the balls of her feet. she states use to be just numbness in the toes. She denies any leg pain. No swelling. No known injury. She states that when she urinates she almost feels like she cannot control it but she is able to do so. Denies any loss of bowel. No saddle anesthesia. No fevers. Has been taking care of her mom who passing away so she has been lifting objects. On exam has nontender back. Negative straight leg raise. Normal Babinskis. Sensation grossly intact. CT shows worsening degenerative changes. told follow up with primary as likely needs MRI. told follow up with neurosurgery. patient understand and agrees with plan. - Diagnoses Differential Diagnosis/HQI/PQRI: Positive: Herniated Disc, Strain, Sprain Provider Diagnoses: Back pain Discharge ED - Sign-Out/Discharge Documenting (check all that apply): Patient Departure Patient Received Moderate/Deep Sedation with Procedure: No - Discharge Plan Condition: Good Disposition: HOME Patient Education Materials: Back Pain (ED) Referrals: Megha Merrill MD [Primary Care Provider] - Renny Palafox MD [Medical Doctor] - Additional Instructions: follow up with primary follow up with neurosurgery take tyenlol as needed for pain Return to ED if develop any new or worsening symptoms - Billing Disposition and Condition Condition: GOOD Disposition: Home
[2018-11-14 00:21] VITALS: BP 152/93
== END 2018-11-14 00:21 | disposition home or self-care (01) ==
LOC: ED 18:31
DX: M54.9 Dorsalgia, unspecified (principal); M51.36 Other intervertebral disc degeneration, lumbar region; E03.9 Hypothyroidism, unspecified; I10 Essential (primary) hypertension; F41.9 Anxiety disorder, unspecified; J45.909 Unspecified asthma, uncomplicated; Z90.710 Acquired absence of both cervix and uterus; F17.210 Nicotine dependence, cigarettes, uncomplicated; Z88.6 Allergy status to analgesic agent; Z88.1 Allergy status to other antibiotic agents; Z91.040 Latex allergy status; Z79.899 Other long term (current) drug therapy
CPT/HCPCS: 72131; 81003; 81015; 87086; 99282

== ENCOUNTER 2019-05-07 13:11 | Emergency (ER) | payer BC ==
[2019-05-07 16:48] VITALS: BP 205/109
[2019-05-07 17:00] LABS: Influenza A Molecular Negative (Negative); Influenza B Molecular Negative (Negative)
--- NOTE | 2019-05-07 18:06 | UC ---
Respiratory Complaint HPI - HPI Summary HPI Summary: 63-year-old woman comes in with a chief complaint of one day of wheezing and shortness of breath and feeling ill. Patient does have a long-standing history of asthma. She is still a low dose daily prednisone. She had the flu in March with an asthma exacerbation. [place] well until yesterday. No fevers measured all she does have a temperature of 100.5 here in clinic. Minimal rhinorrhea. No recent travel. - History of Current Complaint Chief Complaint: UCRespiratory Stated Complaint: WHEEZING,COUGH,SORE THROAT Time Seen by Provider: 05/07/19 15:38 Hx Last Menstrual Period: Pt is menopausal Pain Intensity: 5 - Allergies/Home Medications Allergies/Adverse Reactions: Allergies Allergy/AdvReac Type Severity Reaction Status Date / Time amoxicillin Allergy Rash Verified 05/07/19 15:52 ampicillin Allergy Rash Verified 05/07/19 15:52 aspirin Allergy See Comment Verified 05/07/19 15:52 clindamycin Allergy Diarrhea Verified 05/07/19 15:52 latex Allergy Rash Verified 05/07/19 15:52 NSAIDS (Non-Steroidal Allergy See Comment Verified 05/07/19 15:52 Anti-Inflamma Home Medications: Home Medications Diltiazem CD CAP* [Cardizem CD CAP*] 300 mg PO QAM 01/25/12 [History Confirmed 05/07/19] Triamterene/Hydrochlorothiazid [Dyazide 37.5-25 Capsule] 1 cap PO QAM 01/25/12 [ History Confirmed 05/07/19] Acetaminophen [Tylenol Extra Strength] 1,000 mg PO Q6HR PRN 05/11/17 [History Confirmed 05/07/19] Melatonin/Pyridoxine HCl (B6) [Melatonin 5 mg Tablet] 1 tab PO BEDTIME 05/05/18 [History Confirmed 05/07/19] ALPRAZolam TAB* [Xanax TAB*] 0.5 mg PO BEDTIME PRN 05/15/18 [History Confirmed 05/07/19] Albuterol 2.5MG/3ML (0.083%)* [Ventolin 2.5 MG/3 ML NEB.LUNA*] 2.5 mg INH BID PRN 05/15/18 [History Confirmed 05/07/19] Albuterol HFA INHALER* [Ventolin HFA Inhaler*] 2 puff INH BID PRN 05/15/18 [ History Confirmed 05/07/19] Citalopram TAB* [Celexa TAB*] 20 mg PO QAM 05/15/18 [History Confirmed 05/07/19] Diphenoxylat/Atrop 2.5-0.025M* [Lomotil TAB*] 1 tab PO QID PRN #12 tab MDD 4 [Rx Confirmed 05/07/19] LevoCETirizine TAB (NF) [Xyzal TAB (NF)] 5 mg PO DAILY 05/15/18 [History Confirmed 05/07/19] Levothyroxine TAB* [Synthroid TAB*] 50 mcg PO DAILY 05/15/18 [History Confirmed 05/07/19] Mometasone Furoate [Elocon] 0.1 % TOPICAL BEDTIME PRN 05/15/18 [History Confirmed 05/07/19] Olmesartan Medoxomil [Benicar] 40 mg PO QPM 07/18/18 [History Confirmed 05/07/19 ] Cyclobenzaprine HCl 10 mg PO DAILY PRN 12/14/18 [History Confirmed 05/07/19] Fluticasone/Vilanterol MDI(NF) [Breo Ellipta MDI 100/25(NF)] 12/14/18 [History] Xhance 12/14/18 [History] traMADol TAB* [Ultram*] 50 mg PO .1/2 -1 TAB BID PRN MDD 2 12/14/18 [History Confirmed 05/07/19] Calcium 600 mg PO DAILY 05/02/19 [History Confirmed 05/07/19] Vitamin C TAB* 1 tab PO DAILY 05/02/19 [History Confirmed 05/07/19] Vitamin D TAB* 1 tab PO DAILY 05/02/19 [History Confirmed 05/07/19] PMH/Surg Hx/FS Hx/Imm Hx Previously Healthy: Yes Endocrine History: Hypothyroidism Cardiovascular History: Hypertension Respiratory History: Asthma Other History Of: Negative For: Anticoagulant Therapy - Surgical History Surgical History: Yes Surgery Procedure, Year, and Place: tonsillectomy age 19 [place]. D&[place] x3 [place]. Tubal ligation 1993 [place]. hysterectomy with bladder lift 2001 [place]. sinus surgeries (1 with rhinoplasty and silicone chin implant) x3 (2 [place], 1 [facility] [place] wisdom teeth extraction in dental office. left upper thigh squamous cell removed - 2007 [facility] [place]. 2018 sinus surgery - Family History Known Family History: Positive: Cardiac Disease, Hypertension, Diabetes, Renal Disease - Social History Alcohol Use: Rare Alcohol Amount: 3 times year Substance Use Type: None Smoking Status (MU): Never Smoked Tobacco Type: Cigarettes Amount Used/How Often: on patch Length of Time of Smoking/Using Tobacco: since 2006 Have You Smoked in the Last Year: Yes When Did the Patient Quit Smoking/Using Tobacco: 11/09 Household Exposure Type: Cigarettes - Immunization History Most Recent Influenza Vaccination: 2015 Most Recent Tetanus Shot: 2010 Review of Systems All Other Systems Reviewed And Are Negative: Yes Constitutional: Positive: Other - SEE HPI Skin: Positive: Negative Eyes: Positive: Negative ENT: Positive: Other - SEE HPI Respiratory: Positive: Shortness Of Breath, Other - SEE HPI Cardiovascular: Positive: Negative Gastrointestinal: Positive: Negative Motor: Positive: Negative Neurovascular: Positive: Negative Musculoskeletal: Positive: Negative Neurological/Mental Status: Positive: Negative Psychological: Positive: Negative Is Patient Immunocompromised?: No Physical Exam Triage Information Reviewed: Yes Appearance: Well-Appearing, No Pain Distress, Well-Nourished Vital Signs: Initial Vital Signs Temp 100.5 F 05/07/19 15:39 Pulse 112 05/07/19 15:39 Resp 18 05/07/19 15:39 BP 205/109 05/07/19 15:39 Pulse Ox 98 05/07/19 15:39 Vital Signs Reviewed: Yes Eye Exam: Normal Eyes: Positive: Conjunctiva Clear ENT: Positive: Pharynx normal, TMs normal Neck: Positive: Supple Respiratory: Positive: No respiratory distress, Wheezing Cardiovascular: Positive: RRR Musculoskeletal: Positive: Strength Intact, ROM Intact Neurological: Positive: Alert, Muscle Tone Normal Psychological: Positive: Age Appropriate Behavior Skin Exam: Normal Respiratory Course/Dx - Course Course Of Treatment: Patient wishes to be tested for Covid 19. I discussed the x-ray with her I did not see any acute disease process final radiologist reading is pending. Patient 's to go into in-home isolation and follow-up with [facility]. If she worsens she is to go to the emergency department. - Differential Dx/Diagnosis Provider Diagnosis: Asthma, Shortness of breath, Fever, Elevated blood pressure reading Discharge ED - Sign-Out/Discharge Documenting (check all that apply): Patient Departure All imaging exams completed and their final reports reviewed: No - Discharge Plan Condition: Stable Disposition: HOME Patient Education Materials: Asthma (ED), Fever in Adults (ED), Hypertension ( ED), Shortness of Breath (ED) Referrals: Sunil Pollack MD [Primary Care Provider] - Additional Instructions: PLACE YOURSELF IN HOME ISOLATION. THE [facility] WILL CONTACT YOU. CONTACT THEM TOMORROW IF YOU HAVE NOT HEARD FROM THEM. FOLLOW UP WITH YOUR DOCTOR IF NOT COMPLETELY IMPROVED. GO TO THE EMERGENCY DEPARTMENT IF NOT IMPROVED OR WORSE OR ANY QUESTIONS OR CONCERNS. - Billing Disposition and Condition Condition: STABLE Disposition: Home
--- NOTE | 2019-05-08 09:56 | UC ---
- Progress Note Progress Note: XR wet read correct Course/Dx - Diagnoses Provider Diagnoses: Asthma, Shortness of breath, Fever, Elevated blood pressure reading Discharge ED - Sign-Out/Discharge Documenting (check all that apply): Post-Discharge Follow Up All imaging exams completed and their final reports reviewed: Yes - Discharge Plan Condition: Stable Disposition: HOME Patient Education Materials: Asthma (ED), Fever in Adults (ED), Hypertension ( ED), Shortness of Breath (ED) Referrals: Sunil Pollack MD [Primary Care Provider] - Additional Instructions: PLACE YOURSELF IN HOME ISOLATION. [facility] DEPARTMENT WILL CONTACT YOU. CONTACT THEM TOMORROW IF YOU HAVE NOT HEARD FROM THEM. FOLLOW UP WITH YOUR DOCTOR IF NOT COMPLETELY IMPROVED. GO TO THE EMERGENCY DEPARTMENT IF NOT IMPROVED OR WORSE OR ANY QUESTIONS OR CONCERNS. - Billing Disposition and Condition Condition: STABLE Disposition: Home
== END 2019-05-07 18:07 | disposition home or self-care (01) ==
LOC: UCEAST 13:11
DX: J45.909 Unspecified asthma, uncomplicated (principal); R06.02 Shortness of breath; R03.0 Elevated blood-pressure reading, without diagnosis of hypertension; I10 Essential (primary) hypertension; E03.9 Hypothyroidism, unspecified; Z79.52 Long term (current) use of systemic steroids; Z79.890 Hormone replacement therapy; Z88.0 Allergy status to penicillin; Z88.1 Allergy status to other antibiotic agents; Z88.6 Allergy status to analgesic agent; Z91.09 Other allergy status, other than to drugs and biological substances
CPT/HCPCS: 71046; 87651; 99211; G0463; U0002